=== PATIENT | female | born 1965 | race Caucasian/White ===

== ENCOUNTER → 2018-12-26 | Outpatient (CLI) | payer OTHER ==
[~2018-12-26] MED LIST: ASPI325EC PO; ASPIRIN; CIME400; CIPR500 PO; CYCL10 PO; IBUP200; Norco 5-325 Ta1 EACH PO; OXYACE7.5T PO; RANI150 PO; Robaxin-750750 MG PO; Stool Softener240 MG PO; TUMS300 MG PO; TYLENOL; VALD20 PO
[2018-12-26 08:45] LABS: BASOPHILS ABSOLUTE AUTO 0.02 K/mm3 (0.00-0.23); BASOPHILS PERCENT AUTO 0 % (0-2); EOSINOPHILS ABSOLUTE AUTO 0.16 K/mm3 (0.00-0.68); EOSINOPHILS PERCENT AUTO 3 % (0-6); Hematocrit 38.7 % (33.0-51.0); Hemoglobin 12.2 g/dL (11.5-16.0); IMMATURE GRAN ABSOLUTE AUTO 0.01 K/mm3 (0.00-0.10); IMMATURE GRAN PERCENT AUTO 0 % (0-1); LYMPHOCYTES ABSOLUTE AUTO 1.94 K/mm3 (0.84-5.20); LYMPHOCYTES PERCENT AUTO 34 % (21-46); MONOCYTES ABSOLUTE AUTO 0.37 K/mm3 (0.16-1.47); MONOCYTES PERCENT AUTO 6 % (4-13); Mean Corpuscular HGB 30.2 pg (26.0-34.0); Mean Corpuscular HGB Conc 31.5 g/dL (31.5-36.5); Mean Corpuscular Volume 96 fL (80-100); Mean Platelet Volume 10.7 fL (9.1-12.4); NEUTROPHILS ABSOLUTE AUTO 3.28 K/mm3 (1.96-9.15); NEUTROPHILS PERCENT AUTO 57 % (41-73); Platelet Count 187 K/mm3 (150-400); RDW Coefficient Variation 13.5 % (11.7-14.2); RDW Standard Deviation 47.8 fL (35.1-46.3); Red Blood Cell Count 4.04 M/mm3 (3.80-5.20); White Blood Cell Count 5.78 K/mm3 (4.00-11.30)
[2018-12-26 09:03] LABS: Albumin, Blood 3.5 g/dL (3.4-5.0); Albumin/Globulin Ratio 0.8 (0.8-1.8); Bilirubin, Total 0.4 mg/dL (0.1-1.0); Bun/Creatinine Ratio 12.9 (12.0-20.0); Calcium, Blood 8.8 mg/dL (8.5-10.1); Creatinine, Blood 1.01 mg/dL (0.40-1.00); Globulin, Blood 4.2 g/dL (2.2-4.0); Thyroid Stimulating Hormone 3.855 uIU/mL (0.360-4.800); Total Protein, Blood 7.7 g/dL (6.4-8.2)
== END | disposition home or self-care (01) ==
LOC: LAB SHORT 08:36 → LAB EV 08:36
PROVIDERS: Family Medicine
DX: I10 Essential (primary) hypertension (principal)
CPT/HCPCS: 80053; 83880; 84443; 85025

== ENCOUNTER 2023-06-23 17:34 | Inpatient (IN) | payer OTHER ==
[~2023-06-23] VITALS: Ht 180.3 cm; Wt 422.0 kg
[2023-06-23] MEDS ORDERED: FentaNYL Citrate 50 MCG/ML 2 ML Injection IV ONE (18:25)
[2023-06-23] MEDS ORDERED: Ketorolac Tromethamine 30mg Vial IV ONE (18:25)
[2023-06-23] MEDS ORDERED: Nystatin 100,000 Unit/GM CREAM 15 GM TOP ONE (18:25)
[2023-06-23 19:18] LABS: BASOPHILS ABSOLUTE AUTO 0.01 K/mm3 (0.00-0.23); BASOPHILS PERCENT AUTO 0 % (0-2); EOSINOPHILS ABSOLUTE AUTO 0.02 K/mm3 (0.00-0.68); EOSINOPHILS PERCENT AUTO 0 % (0-6); Hemoglobin 10.4 g/dL (11.5-16.0); IMMATURE GRAN ABSOLUTE AUTO 0.03 K/mm3 (0.00-0.10); IMMATURE GRAN PERCENT AUTO 0 % (0-1); LYMPHOCYTES ABSOLUTE AUTO 0.83 K/mm3 (0.84-5.20); LYMPHOCYTES PERCENT AUTO 10 % (21-46); MONOCYTES ABSOLUTE AUTO 0.86 K/mm3 (0.16-1.47); MONOCYTES PERCENT AUTO 10 % (4-13); Mean Corpuscular HGB 29.8 pg (26.0-34.0); Mean Corpuscular HGB Conc 32.5 g/dL (31.5-36.5); Mean Corpuscular Volume 92 fL (80-100); Mean Platelet Volume 11.7 fL (9.1-12.4); NEUTROPHILS ABSOLUTE AUTO 6.66 K/mm3 (1.96-9.15); NEUTROPHILS PERCENT AUTO 79 % (41-73); Platelet Count 257 K/mm3 (150-400); RDW Coefficient Variation 13.7 % (11.7-14.2); RDW Standard Deviation 46.3 fL (35.1-46.3); Red Blood Cell Count 3.49 M/mm3 (3.80-5.20); White Blood Cell Count 8.41 K/mm3 (4.00-11.30)
[2023-06-23] MEDS ORDERED: Cyclobenzaprine HCl 10 MG Tab PO ONE (19:25)
[2023-06-23 20:00] LABS: Magnesium, Blood 2.5 mg/dL (1.6-2.4)
[2023-06-23 20:07] LABS: Albumin, Blood 2.5 g/dL (3.4-5.0); Albumin/Globulin Ratio 0.5 (0.8-1.8); Bilirubin, Total 0.4 mg/dL (0.1-1.0); Bun/Creatinine Ratio 19.5 (12.0-20.0); Calcium, Blood 8.2 mg/dL (8.5-10.1); Creatinine, Blood 5.29 mg/dL (0.40-1.00); Globulin, Blood 4.7 g/dL (2.2-4.0); Potassium, Blood 5.1 mmol/L (3.5-5.5); Total Protein, Blood 7.2 g/dL (6.4-8.2)
[2023-06-23] MEDS ORDERED: NS 1,000 ML IV SCH ×3 (20:20→23:00)
[2023-06-23] MEDS ORDERED: Clindamycin 600mg in D5W 50 ML IV ONE (20:50)
[2023-06-23 21:31] LABS: Source, Urine Foley catheter
[2023-06-23 21:41] LABS: Appearance, Urine Turbid (Clear); Bilirubin, Urine Neg (Neg); Blood, Urine 5+ (Neg); Color, Urine Yellow (P-Yellow); Glucose Qualitative, Urine Neg (Neg); Ketones, Urine Neg (Neg); Leukocyte Esterase, Urine 3+ (Neg); Nitrite, Urine Neg (Neg); Protein, Urine 3+ (Neg); Specific Gravity, Urine 1.015 (1.003-1.022); Urobilinogen, Urine NORM (Normal)
[2023-06-23 21:57] LABS: Bacteria Many /hpf; Mucus Light (0-Heavy); Red Blood Cells, Urine 25-50 /hpf (0-2); Squamous Epithelial Cells Mod /hpf (Few); White Blood Cells, Urine TNTC /hpf (0-5)
[2023-06-23 22:00] LABS: Amorphous Mod (0-Heavy)
[2023-06-23] MEDS ORDERED: Acetaminophen 325 MG TABLET PO PRN (22:05)
[2023-06-23] MEDS ORDERED: FLU VACC QS2023-24(6MOS UP)/PF 60 MCG/0.5 ML SYRINGE IM ONE (22:05)
[2023-06-23] MEDS ORDERED: Nystatin 100,000 Unit/GM CREAM 15 GM TOP SCH (23:00)
--- NOTE | 2023-06-23 23:30 | NUR ---
NEW ADMIT FROM THE ER. PATIENT ARRIVED TO ROOM 354 VIA GURNEY AND ONE PERSON ASSIST. PATIENT ADMITTED INTO A LIFT ROOM. PATIENT ARRIVED W/LIFT SHEET IN PLACE. 4 PERSON TRANSFER WITH LIFT TO BARIATRIC BED. PATIENT ASLEEP UPON ARRIVAL. PATIENT MOVED TO BARIATRIC BED AND REPOSITIONED W/ THE ASSISTANCE OF DESIGN DRAFTER CHIEF.
[2023-06-23 23:57] VITALS: BP 103/53
[2023-06-24] MEDS ORDERED: Aspir 8181 MG PO (00:26)
[2023-06-24] MEDS ORDERED: Ranitidine HCl150 M1 PO (00:28)
[2023-06-24] MEDS ORDERED: LISI5 PO (00:30)
[2023-06-24] MEDS ORDERED: TIZA4 (00:32)
[2023-06-24] MEDS ORDERED: TIZA4 PO (00:33)
[2023-06-24] MEDS ORDERED: VITAMIN D33000 UNIT PO (00:34)
--- NOTE | 2023-06-24 00:50 | NUR ---
HOSPITALIST CONTACTED. HOSPITALIST DR. NAVARRO CONTACTED FOR PATIENTS C/O PAIN/MUSCLE SPASMS THAT IS UNRESOLVED BY TYLENOL PER PATIENT. ORDERED FOR HYDROCODONE PER HIS ORDERS-SEE ORDERS/EMAR.
[2023-06-24] MEDS ORDERED: HYDROcodone 5-APAP 325 TAB PO PRN (01:00)
[2023-06-24 05:30] LABS: BASOPHILS ABSOLUTE AUTO 0.02 K/mm3 (0.00-0.23); BASOPHILS PERCENT AUTO 0 % (0-2); EOSINOPHILS ABSOLUTE AUTO 0.05 K/mm3 (0.00-0.68); EOSINOPHILS PERCENT AUTO 1 % (0-6); Hematocrit 28.8 % (33.0-51.0); Hemoglobin 9.2 g/dL (11.5-16.0); IMMATURE GRAN ABSOLUTE AUTO 0.03 K/mm3 (0.00-0.10); IMMATURE GRAN PERCENT AUTO 1 % (0-1); LYMPHOCYTES ABSOLUTE AUTO 0.98 K/mm3 (0.84-5.20); LYMPHOCYTES PERCENT AUTO 17 % (21-46); MONOCYTES ABSOLUTE AUTO 0.65 K/mm3 (0.16-1.47); MONOCYTES PERCENT AUTO 11 % (4-13); Mean Corpuscular HGB 29.6 pg (26.0-34.0); Mean Corpuscular HGB Conc 31.9 g/dL (31.5-36.5); Mean Corpuscular Volume 93 fL (80-100); Mean Platelet Volume 11.3 fL (9.1-12.4); NEUTROPHILS ABSOLUTE AUTO 3.98 K/mm3 (1.96-9.15); NEUTROPHILS PERCENT AUTO 70 % (41-73); Platelet Count 199 K/mm3 (150-400); RDW Coefficient Variation 13.7 % (11.7-14.2); RDW Standard Deviation 46.7 fL (35.1-46.3); Red Blood Cell Count 3.11 M/mm3 (3.80-5.20); White Blood Cell Count 5.71 K/mm3 (4.00-11.30)
--- NOTE | 2023-06-24 06:15 | NUR ---
SHIFT SUMMARY. PATIENT IS A 57 YEAR OLD FEMALE IN WITH RHABDO AND A UTI. PATIENT IS AOX3-4. PATIENT CALLING OUT AT TIMES T/O NIGHT-PATIENTS NEEDS ADDRESSED. PATIENT IS PLEASANT AND COOPERATIVE WITH CARE. PATIENT HAS HOME MEDS THAT ARE LOCKED IN PATIENT [employer]. PATIENT HAS RED, MOIST, YEASTY RASH TO GROIN AND FOLDS-PICTURES DOCUMENTED IN CHART. PATIENT HAS SLEPT OFF AND ON T/O NIGHT. PATIENT IS BEDREST AND LIFT-PATIENT IS IN BARIATRIC BED WITH LIFT SHIFT. BED IS LOCKED IN THE LOWEST POSITION W/CALL LIGHT IN REACH.
[2023-06-24 06:17] LABS: Albumin/Globulin Ratio 0.5 (0.8-1.8); Bilirubin, Total 0.4 mg/dL (0.1-1.0); Bun/Creatinine Ratio 22.1 (12.0-20.0); Calcium, Blood 7.7 mg/dL (8.5-10.1); Creatinine, Blood 4.66 mg/dL (0.40-1.00); Globulin, Blood 4.2 g/dL (2.2-4.0); Potassium, Blood 4.6 mmol/L (3.5-5.5); Total Protein, Blood 6.2 g/dL (6.4-8.2)
[2023-06-24 07:59] VITALS: BP 105/50
[2023-06-24] MEDS ORDERED: Heparin Sodium,Porcine 5,000 UNIT/0.5 ML SDV SC SCH (09:00)
[2023-06-24] MEDS ORDERED: TiZANidine HCl 4 MG Tab PO PRN (11:25)
[2023-06-24] MEDS ORDERED: NS 1,000 ML IV SCH (11:30)
[2023-06-24] MEDS ORDERED: CefTRIAXone Sodium 1,000 MG in NS 50 ML IV SCH (11:42)
[2023-06-24] MEDS ORDERED: Vancomycin HCL 2,500 MG in NS 250 ML IV ONE (11:45)
[2023-06-24] MEDS ORDERED: FentaNYL Citrate 50 MCG/ML 2 ML Injection IV PRN (14:05)
[2023-06-24] MEDS ORDERED: Miconazole Nitrate 2% 85 GM PWD TOP PRN (16:00)
[2023-06-24 17:00] VITALS: BP 116/69
--- NOTE | 2023-06-24 17:26 | NUR ---
DAYSHIFT SUMMARY Patient alert & oriented x4, pleasant and cooperative with cares. Worked with OT this morning, used alice lift to transfer patient to recliner. Patient unable to ambulate. PT assessed patient this afternoon, and helped patient with bed exercises. PT instructed RN to have patient OOB in recliner for at least one meal per day. Patient c/o pain when in recliner, she compained sitting in high fowlers pinches the skin on her pannus. Wound care provided, skin folds red and exoriated, very painful. Cleaned areas and applied powder/pads to absorb moisture. Patient very painful, hydrocodone and IV fentynal givne for pain. Vitals stable. Will continue plan of care.
[2023-06-24 19:47] VITALS: BP 114/59
[2023-06-24] MEDS ORDERED: Lactobacil 2-S.Thermo-Bifido 1 1 Cap PO SCH (21:00)
[2023-06-25 02:59] VITALS: BP 103/57
[2023-06-25 04:41] LABS: BASOPHILS ABSOLUTE AUTO 0.01 K/mm3 (0.00-0.23); BASOPHILS PERCENT AUTO 0 % (0-2); EOSINOPHILS ABSOLUTE AUTO 0.13 K/mm3 (0.00-0.68); EOSINOPHILS PERCENT AUTO 2 % (0-6); Hematocrit 29.9 % (33.0-51.0); Hemoglobin 9.3 g/dL (11.5-16.0); IMMATURE GRAN ABSOLUTE AUTO 0.07 K/mm3 (0.00-0.10); IMMATURE GRAN PERCENT AUTO 1 % (0-1); LYMPHOCYTES ABSOLUTE AUTO 1.19 K/mm3 (0.84-5.20); LYMPHOCYTES PERCENT AUTO 19 % (21-46); MONOCYTES ABSOLUTE AUTO 0.68 K/mm3 (0.16-1.47); MONOCYTES PERCENT AUTO 11 % (4-13); Mean Corpuscular HGB 29.3 pg (26.0-34.0); Mean Corpuscular HGB Conc 31.1 g/dL (31.5-36.5); Mean Corpuscular Volume 94 fL (80-100); Mean Platelet Volume 11.4 fL (9.1-12.4); NEUTROPHILS ABSOLUTE AUTO 4.22 K/mm3 (1.96-9.15); NEUTROPHILS PERCENT AUTO 67 % (41-73); Platelet Count 210 K/mm3 (150-400); RDW Coefficient Variation 13.8 % (11.7-14.2); RDW Standard Deviation 48.2 fL (35.1-46.3); Red Blood Cell Count 3.17 M/mm3 (3.80-5.20)
[2023-06-25 05:41] LABS: Magnesium, Blood 2.5 mg/dL (1.6-2.4)
[2023-06-25 05:47] LABS: Alanine Aminotransfer (ALT/SGP 89 U/L (12-78); Albumin, Blood 1.9 g/dL (3.4-5.0); Albumin/Globulin Ratio 0.4 (0.8-1.8); Alk Phos 104 U/L (50-136); Anion Gap 7 mmol/L (6-16); Aspartate Aminotrans (AST/SGOT 130 U/L (12-37); Bilirubin, Total 0.3 mg/dL (0.1-1.0); Blood Urea Nitrogen 95 mg/dL (8-24); Bun/Creatinine Ratio 30.2 (12.0-20.0); CO2, Blood 23 mmol/L (21-32); Calcium, Blood 8.1 mg/dL (8.5-10.1); Chloride, Blood 109 mmol/L (98-108); Creatinine, Blood 3.15 mg/dL (0.40-1.00); Globulin, Blood 4.4 g/dL (2.2-4.0); Glomerular Filtration Rate 17 (60-); Glucose, Blood 104 mg/dL (70-99); Potassium, Blood 4.5 mmol/L (3.5-5.5); Sodium, Blood 139 mmol/L (136-145); Total Protein, Blood 6.3 g/dL (6.4-8.2); Vancomycin, Random 14.7 ug/mL
--- NOTE | 2023-06-25 07:29 | NUR ---
PATIENT IS ALERT AND ORIENTED WITH ONGOING IV FLUIDS ON RIGHT UPPER EXTREMITY INFUSING WELL. ON ROOM AIR. COMPLAINT OF PAIN AND MEDICATED ACCORDINGLY. WITH BELLO CATHETER DRAINING WELL. NEEDS ATTENDED. CALL LIGHT WITHIN PATIENT'S REACH. WILL CONTINUE TO MONITOR
[2023-06-25 07:57] VITALS: BP 117/64
[2023-06-25] MEDS ORDERED: [UNRECOGNIZED DRUG - OTHER] SC SCH (12:00)
[2023-06-25] MEDS ORDERED: DARBEPOETIN ALFA SC SCH (12:00)
[2023-06-25] MEDS ORDERED: FentaNYL Citrate 50 MCG/ML 2 ML Injection IV PRN (12:10)
--- NOTE | 2023-06-25 12:50 | NUR ---
pt has red skin and skin breakdown under LT side breast and under stomach fold,The RN and I cleaned with wound cleanser and patted dry before applying nystatin powder and placed pillow case under breast and white chucks under stomach. Pt has enlarged vaginal area with skin breakdown under and between thighs Rn and cna2 cleaned area with wound cleanser, pat dry and applied nystatin powder. pillow cases were placed between vaginal skin and thighs to prevent moisture build up
[2023-06-25 16:34] VITALS: BP 115/64
--- NOTE | 2023-06-25 17:02 | NUR ---
DAYSHIFT SUMMARY Patient alert & oriented x4. Patient continues to have muscle spasms and pain. Repostioning to reduce discomfort. Tizanadine given PRN for muscle spasms. IV Fentynal 12.5mg given for pain. During wound care patient in severe pain, crying and yelling. Skin is red, exoriated in skin folds, small open wounds noted t/o. Yeast, moisture noted in skin folds and groin. RN notified MD, and reported patient in sever epain during wound care. Orders to increase IV Fentynal to 25mcg. IV ABX administred. Collected UA for urine sodium. Vitals stable, saturations stable on RA, afebrile. Will continue plan of care.
[2023-06-25 17:06] LABS: Eosinophils-Raw #,Urine 1
[2023-06-25 19:22] VITALS: BP 155/62
[2023-06-26 03:33] VITALS: BP 140/61
[2023-06-26 06:08] LABS: Hematocrit 32.3 % (33.0-51.0); Hemoglobin 9.9 g/dL (11.5-16.0)
[2023-06-26 06:35] LABS: Albumin, Blood 1.9 g/dL (3.4-5.0); Anion Gap 7 mmol/L (6-16); Blood Urea Nitrogen 74 mg/dL (8-24); Bun/Creatinine Ratio 41.6 (12.0-20.0); CO2, Blood 23 mmol/L (21-32); Calcium, Blood 8.7 mg/dL (8.5-10.1); Chloride, Blood 109 mmol/L (98-108); Creatinine, Blood 1.78 mg/dL (0.40-1.00); Glomerular Filtration Rate 33 (60-); Glucose, Blood 111 mg/dL (70-99); Magnesium, Blood 2.3 mg/dL (1.6-2.4); Phosphorus, Blood 4.2 mg/dL (2.5-4.9); Potassium, Blood 4.5 mmol/L (3.5-5.5); Sodium, Blood 139 mmol/L (136-145); Vancomycin, Random 13.5 ug/mL
--- NOTE | 2023-06-26 06:56 | NUR ---
PATIENT IS ALERT AND ORIENTED. COMPLAINTS OF PAIN, MEDICATED ACCORDINGLY. WITH POWERGLIDE ON LEFT UPPER ARM WITH ONGOING IV FLUIDS INFUSING WELL. WITH BELLO CATHETER, DRAINING WELL. NEEDS ATTENDED. CALL LIGHT WITHIN PATIENT'S REACH. WILL CONTINUE TO MONITOR
[2023-06-26 07:42] VITALS: BP 125/70
[2023-06-26] MEDS ORDERED: TiZANidine HCl 4 MG Tab PO PRN (08:55)
[2023-06-26] MEDS ORDERED: Fluconazole 100 MG Tab PO SCH (09:00)
[2023-06-26] MEDS ORDERED: Arginine/Glutamine/Calcium Hmb 1 Packet PO SCH (09:00)
[2023-06-26] MEDS ORDERED: Vancomycin HCL 2,500 MG in NS 250 ML IV SCH (09:00)
[2023-06-26] MEDS ORDERED: NS 1,000 ML IV SCH (09:15)
[2023-06-26 15:45] VITALS: BP 130/58
[2023-06-26 19:24] VITALS: BP 158/67
--- NOTE | 2023-06-26 19:37 | NUR ---
SHIFT SUMMARY A&O X 4, VSS. PLEASANT & COOPERATIVE WITH ALL CARE. IS [place]. MEDICATED PER EMAR FOR C/O PAIN. PLACED CALL TO DR. BAINS IN THE MORNING TO REPORT PT'S C/O OF L SIDED SCIATIC NERVE PAIN, RECEIVED ORDERS. PT TURNED TO R SIDE W/ ASSIST X 4 TO HELP RELIEVE PAIN. DURING WOUND TREATMENT OF ALL FOLDS A POPPED BLISTER WAS DISCOVERED ON PT'S R BUTTOCK CHEEK, PICS TAKEN AND ARE ON CHART. PT IS IN A WEST BED. PG IN L UPPER ARM INTACT & PATENT WITH FLUIDS INFUSING. APPETITE IS GOOD. PLAN IS LIKELY FOR PLACEMENT UPON DC.
[2023-06-27 02:48] VITALS: BP 116/60
--- NOTE | 2023-06-27 07:03 | NUR ---
SUMMARY: PT A/OX3 AND ANSWERS Q'S APPROPRIATELY BUT HAS DELAYED RESPONSES AND SLOW SPEECH. SHE'S W/C BOUND AT BASELINE AND TYPICALLY ABLE TO PIVOT T/F W/ASSIST BUT PHYS TX CONSULTING FOR INCREASED WEAKNESS. SHE'S FIGITY AND REPOSITIONS HERSELF OFTEN IN BED BUT ASSIST PROVIDED PRN. ACE IS PATENT DRAINING AND IS CONSULTING FOR ONGOING HYPONATREMIA. X1 IV LASIX AND SCHEDULED NACL TABLET RECEIVED PER EMAR, AM LABS PENDING. NO ACUTE CHANGES, VSS/AFEBRILE. WCTM AND REPORT TO DAY RN.
--- NOTE | 2023-06-27 07:05 | NUR ---
SUMMARY: PT A/OX4, CALLS APPROPRIATELY TO SPECIFY NEEDS AND IS PLEASANT AND COOPERATIVE W/CARE. SHE'S ON BEDREST AT PRESENT ON A WEST BED AND REQUIRES LIFT OOB W/REPOSITIONING ASSIST FOR SBD PREVENTION. SHE HAS YEAST TO ALL SKIN FOLDS W/EXORIATION, REDNESS AND WEAPING OPEN SORES SCATTERED T/O. AREAS CLEANSED W/NYSTATIN CREAM APPLIED THEN PILLOW CASES DRAPED FOR MOISTURE WHICKING. BELLO IS PATENT/DRAINING FOR WOUND PREVENTION AND DECREASED MOBILITY. SHE REPORTS SCIATICA PAIN W/SPASMS AND PREFERS TO BE R.SIDE LYING W/FLEXERIL AND NORCO RECEIVED FOR TOLERABLE RELIEF. IV ABX AND IVF INFUSING FOR RHABDO.
[2023-06-27 07:18] LABS: Hemoglobin 9.8 g/dL (11.5-16.0)
[2023-06-27 07:47] LABS: Albumin, Blood 1.8 g/dL (3.4-5.0); Anion Gap 6 mmol/L (6-16); Blood Urea Nitrogen 59 mg/dL (8-24); Bun/Creatinine Ratio 43.4 (12.0-20.0); CO2, Blood 25 mmol/L (21-32); Calcium, Blood 8.7 mg/dL (8.5-10.1); Chloride, Blood 107 mmol/L (98-108); Creatinine, Blood 1.36 mg/dL (0.40-1.00); Glomerular Filtration Rate 45 (60-); Glucose, Blood 101 mg/dL (70-99); Magnesium, Blood 2.1 mg/dL (1.6-2.4); Phosphorus, Blood 3.7 mg/dL (2.5-4.9); Potassium, Blood 4.6 mmol/L (3.5-5.5); Sodium, Blood 138 mmol/L (136-145)
[2023-06-27 08:02] VITALS: BP 141/61
[2023-06-27 16:17] VITALS: BP 131/51
[2023-06-27] MEDS ORDERED: Bisacodyl 5 MG TabEC PO PRN (16:25)
[2023-06-27] MEDS ORDERED: Sennosides 8.6 MG Tab PO SCH (16:25)
[2023-06-27] MEDS ORDERED: Mineral Oil 133 ML Enema PR PRN (16:25)
--- NOTE | 2023-06-27 17:03 | NUR ---
SUMMARY- PT A/O X4, [place], COOPERATIVE WITH CARE. OBESE, HAVING SEVERE PAIN IN LEGS AND BACK, SPASMS, PAIN IN HIPS, FEELS LIKE L HIP IS GOING TO POP OUT OF PLACE IN CERTAIN POSITIONS. REALY ONLY TOLERATES LAYING TILTED SLIGHTLY TO R SIDE. PREMEDICATED AT 1200, AND 4 STAFF MEMBERS WORKED TO GET HER INTO A CHAIR WITH A BEDREST. FENTANYL JUST PRIOR TO TX TO CHAIR. WAS UP IN CHAIR FOR LUNCH, TOOK BITES, AND HAD AN ENSURE. WAS ONLY ABLE TO TOLERATE BEING IN CHAIR FOR 20 MIN THAN BEGAN CRYING IN PAIN FROM GLUT WOUNDS AND HAD TO LIFT PT BACK TO BED. PREMEDICATED NOW, PLAN FOR WOUND CARE 0, WILL WRITE NOTE CONCERNING SKIN ISSUES. IVF NS AT 50ML/HR CONTINUOUS. TAKING IN WATER. STARTED ON BOWEL CARE MEDS, NO BM SINCE 06/20. PAIN PARTIALLY CONTROLLED TODAY WITH NORCO AND XANAFLEX AND PRN FENT. WILL REPORT TO NOC AJ
--- NOTE | 2023-06-27 19:52 | NUR ---
WOUND CARE 06/27 1529- PREMEDICATED WITH NORCO AND XANAFLEX. CLEANSED ALL SKIN FOLDS. BREAST AREA DRIED SCABS, RED PEALING. CLEANSED , DRIED, DUSTED WITH MICONAZOLE POWDER. PANUS, CLEANSED DRIED, MULT OPEN ULCERATIONS, EXCORIATION, APPLIED CALAZYME AND MICOZOLE CREAM. BELLO CARE PERFORMED. BUTTOCK CLEANSED, 2 OPEN AREAS APPLIED MEPILEX, CALAZYME TO GLUT CREASE.
[2023-06-27 20:01] VITALS: BP 121/46
[2023-06-28 02:19] VITALS: BP 157/74
--- NOTE | 2023-06-28 05:08 | NUR ---
Shift Summary Patient is alert and oriented x 4. Resprirations regular and unlabored. Patient is on room air. Overhead lift was used for cleaning and positioning patient during dressing changes. She has redness and excoriation to skin folds. Folds were cleaned and patted dry.Medicated powder and cream applied to folds. Pillow cases put in place between folds to prevent skin on skin contact. Patient requires pain medication about every 4 hours. Xanaflex was also given for complaint of muscle spasms in legs. She has normal saline infusing to power glide in left upper arm at 50 cc/hr. She did not have a bowel movement on this shift.
[2023-06-28 05:35] LABS: Hematocrit 31.6 % (33.0-51.0); Hemoglobin 9.7 g/dL (11.5-16.0)
[2023-06-28 06:01] LABS: Albumin, Blood 1.8 g/dL (3.4-5.0); Anion Gap 6 mmol/L (6-16); Blood Urea Nitrogen 48 mg/dL (8-24); Bun/Creatinine Ratio 42.1 (12.0-20.0); CO2, Blood 26 mmol/L (21-32); Calcium, Blood 8.8 mg/dL (8.5-10.1); Chloride, Blood 108 mmol/L (98-108); Creatinine, Blood 1.14 mg/dL (0.40-1.00); Glomerular Filtration Rate 56 (60-); Glucose, Blood 114 mg/dL (70-99); Magnesium, Blood 1.8 mg/dL (1.6-2.4); Phosphorus, Blood 3.6 mg/dL (2.5-4.9); Potassium, Blood 4.9 mmol/L (3.5-5.5); Sodium, Blood 140 mmol/L (136-145)
[2023-06-28 08:19] VITALS: BP 167/79
[2023-06-28 09:17] LABS: Vancomycin, Trough 20.9 ug/mL (5.0-10.0)
[2023-06-28] MEDS ORDERED: Vancomycin HCL 1,000 MG in NS 100 ML IV SCH (11:00)
[2023-06-28] MEDS ORDERED: Magnesium Hydroxide Conc 10 ML UDC PO PRN (12:20)
[2023-06-28 14:59] VITALS: BP 141/78
--- NOTE | 2023-06-28 20:32 | NUR ---
SUMMARY- PT A/O X4, VERY [place]. USES CALL LIGHT TO MAKE NEEDS KNOWN. KIDNEY FUNCTION BACK TO NORMAL. IVF DC'D. BELLO MED YELLOW. LAXATIVES PRODUCED AN X LG BM, HARD PELLETS AT FIRST, RN DIG ASSIST WITH OIL ENEMA UNTIL BM ABLE TO BE PUSHED OUT BY PT AND SOFT. NO BLEEDING, THOUGH PT STATES HEMORRHOIDS. PT TOLERATES LG AMOUNTS OF FLUIDS AND ENSURES, ONLY BITES OF SOLIDS. STATES SHE IS NOT A BIG EATER. STATES SHE FEELS MUCH BETTER HAVING HAD A BM. PAIN IS IN L HIP AND SCIATIC PAIN. HAS MUSCLE SPASMS IN LEGS WITH MOVEMENTS. PT PREFERS TO LAY ON HER R SIDE WITH PILLOWS, DOES NOT TOLERATED BACK LAYING OR L SIDE. PT UP TO CHAIR WITH PHYSICAL THERAPY TODAY USIND CEILING LIFT. SAT IN CHAIR FOR ALMOST 2 HOURS WITH A LOT OF ENCOURAGEMENT. BACK TO BED AT 1700 SO PT COULD HAVE BM. THAN ALL SKIN SLEANSED, REAPPLIED ZINC OINT AND NYSTATIN CREAM. HARD TIME CONTROLLING PAIN. NORCO 5, 2 TABS APPROX Q4 HELPFUL. FENT 25MG IV FOR BTP. BUT PT STILL FREQ HEARD CRYING OUT IN PAIN, NEEDS FREQ PILLOW READJUSTMENT AND HARD TO CONTROL PAIN. XANAFLEX FOR SPASMS. REOPRTED TO BETHEL LOPEZ RN
[2023-06-28 20:56] VITALS: BP 164/73
--- NOTE | 2023-06-29 04:05 | NUR ---
SHIFT SUMMARY PATIENT HAD NO ACUTE CHANGES. AXOX 4 AND BEDREST/LIFT. BELLO PATENT AND DRAINING TO GRAVITY. POWERGLIDE MISSY ARM POSITIONAL. IV ABX INFUSED. REPORTED BACK PAIN X 2 AND NORCO 2 TABS GIVEN PER EMAR. LOW GRADE TEMP 99.8 AND ROOM TEMP TURNED DOWN. DENIES CHEST PAIN, SOB, AND N/V. CALL LIGHT IN REACH. BED IN LOWEST POSITION. WILL CONTINUE TO MONITOR UNTIL DAY SHIFT NURSE ASSUMES CARE.
[2023-06-29 05:39] VITALS: BP 130/68
[2023-06-29 06:32] LABS: Hematocrit 31.7 % (33.0-51.0); Hemoglobin 9.9 g/dL (11.5-16.0)
[2023-06-29 06:58] LABS: Albumin, Blood 1.8 g/dL (3.4-5.0); Anion Gap 5 mmol/L (6-16); Blood Urea Nitrogen 36 mg/dL (8-24); CO2, Blood 28 mmol/L (21-32); Calcium, Blood 8.9 mg/dL (8.5-10.1); Chloride, Blood 106 mmol/L (98-108); Glomerular Filtration Rate 66 (60-); Glucose, Blood 121 mg/dL (70-99); Magnesium, Blood 1.9 mg/dL (1.6-2.4); Phosphorus, Blood 3.7 mg/dL (2.5-4.9); Potassium, Blood 4.7 mmol/L (3.5-5.5); Sodium, Blood 139 mmol/L (136-145)
[2023-06-29 08:06] VITALS: BP 160/85
[2023-06-29 17:30] VITALS: BP 151/86
--- NOTE | 2023-06-29 18:25 | NUR ---
SHIFT SUMMARY NO ACUTE CHANGES THIS SHIFT. WOUND CARE PERFORMED PER ORDERS AND PAIN MEDICATED PER EMAR. CALL LIGHT WITHIN REACH AND PT ABLE TO MAKE NEEDS KNOWN.
[2023-06-29 19:22] VITALS: BP 108/71
[2023-06-29 23:26] LABS: Vancomycin, Trough 17.8 ug/mL (5.0-10.0)
--- NOTE | 2023-06-30 03:36 | NUR ---
END OF SHIFT SUMMARY PT A&Ox4, VSS, AFEBRILE, PT ON RA. PT CALLS APPROPRIATELY, ABLE TO MAKE NEEDS KNOWN. IV ABX HUNG. POWERGLIDE TO R UPPER ARM, S. LOCKED. PT 2-3P ASSIST WITH TURNS IN BED, LIFT WAS USED TO REPOSITION/BOOST PT UP IN BED. PT PAINFUL AFTER CHANGING THE LEVI PADS. PAIN MANAGED WITH PRN NORCO GIVEN WITH GOOD RESULTS. PRN MUSCLE RELAXER ZANAFLEX ADMINISTERED WHICH WAS EFFECTIVE. CALL LIGHT WITHIN REACH, WCTM.
[2023-06-30 05:05] VITALS: BP 146/74
[2023-06-30 05:25] LABS: Hematocrit 30.6 % (33.0-51.0); Hemoglobin 9.5 g/dL (11.5-16.0)
[2023-06-30 06:08] LABS: Albumin, Blood 1.9 g/dL (3.4-5.0); Anion Gap 5 mmol/L (6-16); Blood Urea Nitrogen 31 mg/dL (8-24); Bun/Creatinine Ratio 32.8 (12.0-20.0); CO2, Blood 28 mmol/L (21-32); Calcium, Blood 8.8 mg/dL (8.5-10.1); Chloride, Blood 104 mmol/L (98-108); Creatinine, Blood 0.95 mg/dL (0.40-1.00); Glomerular Filtration Rate 70 (60-); Glucose, Blood 120 mg/dL (70-99); Magnesium, Blood 1.8 mg/dL (1.6-2.4); Phosphorus, Blood 3.9 mg/dL (2.5-4.9); Potassium, Blood 4.6 mmol/L (3.5-5.5); Sodium, Blood 137 mmol/L (136-145)
[2023-06-30 07:23] VITALS: BP 129/63
[2023-06-30] MEDS ORDERED: Lisinopril 5 MG Tab PO SCH (09:00)
[2023-06-30] MEDS ORDERED: Cholecalciferol 1000 Unit Tablet (=25MCG) PO SCH (09:00)
[2023-06-30 17:09] VITALS: BP 125/74
--- NOTE | 2023-06-30 17:40 | NUR ---
SHIFT SUMMARY PT WORKED W/ PHYSICAL AND OCCUPATIONAL THERAPY THIS SHIFT, SEE NOTES. WOUND CARE COMPLETED PER ORDERS. NO OTHER ACUTE CHANGES. CALL LIGHT WITHIN REACH AND PT ABLE TO MAKE NEEDS KNOWN.
[2023-06-30 20:13] VITALS: BP 121/67
[2023-07-01 03:25] VITALS: BP 136/74
--- NOTE | 2023-07-01 04:41 | NUR ---
END OF SHIFT SUMMARY PT SLEPT WELL OVERNIGHT. PT A&O x4, VSS, AFEBRILE. PT ON RA, RESP RATE EVEN AND UNLABORED. WOUND CARE COMPLETED PER ORDERS. PT MEDICATED PRIOR TO WOUND CARE. PAIN MANAGED WITH PRN NORCO AND MUSCLE RELAXER, ZANAFLEX WHICH WAS EFFECTIVE. PT REPOSITIONED FOR COMFORT AND TO PREVENT FURTHER SKIN BREAKDOWN TO BUTTOCKS/COCCYX. REDNESS/EXCORIATED DELICATE SKIN TO BUTTOCKS, 3 MEPILEX DRESSINGS PLACED TO BUTTOCKS FOR PROTECTION. PT TOLERATED TURNING IN BED MUCH BETTER LAST NIGHT VERSUS TUESDAY MORNING. PT UP OOB YESTERDAY WORKING WITH THERAPY. PT PLEASANT AND COOPERATIVE WITH CARE PROVIDED. CALL LIGHT WITHIN REACH, WCTM.
[2023-07-01 07:25] VITALS: BP 112/65
[2023-07-01 08:11] LABS: Hematocrit 32.1 % (33.0-51.0)
[2023-07-01 08:29] LABS: Albumin, Blood 1.9 g/dL (3.4-5.0); Anion Gap 5 mmol/L (6-16); Blood Urea Nitrogen 27 mg/dL (8-24); Bun/Creatinine Ratio 30.1 (12.0-20.0); CO2, Blood 27 mmol/L (21-32); Calcium, Blood 8.5 mg/dL (8.5-10.1); Chloride, Blood 104 mmol/L (98-108); Glomerular Filtration Rate 75 (60-); Glucose, Blood 117 mg/dL (70-99); Magnesium, Blood 1.8 mg/dL (1.6-2.4); Phosphorus, Blood 4.4 mg/dL (2.5-4.9); Potassium, Blood 4.6 mmol/L (3.5-5.5); Sodium, Blood 136 mmol/L (136-145)
--- NOTE | 2023-07-01 08:30 | NUR ---
pt laying in bed awake a/ox4, watching tv, having loose stools this am, lungs are clear in upper [place], dim in bases, resp even and unlabored, no cough noted, hrr, power glide to vinnie site is clear and patent, does not draw, btx4 dim, saavedra cath in place for retention, draining clear china urine, skin has rash, open areas under breasts and panus, ointment in place, with pillow cases, can help to turn herself a bit, but is at least two person assist. call light in reach.
[2023-07-01] MEDS ORDERED: NS 250 ML IV PRN (08:50)
[2023-07-01 11:01] LABS: Vancomycin, Trough 17.4 ug/mL (5.0-10.0)
--- NOTE | 2023-07-01 13:17 | NUR ---
pt resting in bed, has had several bms that are loose, no further changes, report given to Barbara ROCHA. call light in reach.
[2023-07-01 16:05] VITALS: BP 102/76
--- NOTE | 2023-07-01 16:15 | NUR ---
MET WITH PATIENT TO DISCUSS POLST. ASSESSED PATIENT FOR PAIN. SHE WAS UP TO THE CHAIR AND UNCOMFORTABLE. DISCUSSED WITH BEDSIDE RN AND PATIENT WAS TREATED PER MAR. POLST FORM FILLED OUT AND LEFT IN THE ROOM FOR DR TO SIGN.
--- NOTE | 2023-07-01 17:49 | NUR ---
SUMMARY- AAOX4. LIFT PT. PT PLACED IN RECLINER AFTER LUNCH FOR 2 HOURS. PT'S PAIN IN BACK/HIPS CONTROLLED MODERATELY WITH EMAR PAIN MEDS AND MUSCLE RELAXER.
[2023-07-01 19:43] VITALS: BP 121/76
[2023-07-02 03:39] VITALS: BP 119/59
--- NOTE | 2023-07-02 04:12 | NUR ---
SHIFT SUMMARY PT A&O X4, CALM AND COOPERATIVE WITH CARE. PT NOT OOB THIS SHIFT, LIFT PATIENT. BELLO IN PLACE PATENT AND DRAINING, CATH CARE COMPLETED. PT HAS OPEN SORES TO FOLDS. SEE WOUND CARE ORDERS. CLEANED AND DRIED, PLACED CREAM, AND PILLOW CASES IN FOLDS. PT COMPLAINTS OF HIP PAIN AND BACK SPASMS. MEDICATED PER EMAR AND PT STATES PAIN IS NOW "TOLERABLE". BED KEPT IN LOWEST POSITION WITH CALL LIGHT WITHIN REACH. WILL CONTINUE TO MONITOR UNTIL SHIFT END.
[2023-07-02 05:28] LABS: BASOPHILS ABSOLUTE AUTO 0.03 K/mm3 (0.00-0.23); BASOPHILS PERCENT AUTO 0 % (0-2); EOSINOPHILS ABSOLUTE AUTO 0.17 K/mm3 (0.00-0.68); EOSINOPHILS PERCENT AUTO 2 % (0-6); Hematocrit 32.8 % (33.0-51.0); Hemoglobin 10.4 g/dL (11.5-16.0); IMMATURE GRAN ABSOLUTE AUTO 0.07 K/mm3 (0.00-0.10); IMMATURE GRAN PERCENT AUTO 1 % (0-1); LYMPHOCYTES ABSOLUTE AUTO 1.68 K/mm3 (0.84-5.20); LYMPHOCYTES PERCENT AUTO 21 % (21-46); MONOCYTES ABSOLUTE AUTO 0.74 K/mm3 (0.16-1.47); MONOCYTES PERCENT AUTO 9 % (4-13); Mean Corpuscular HGB 29.6 pg (26.0-34.0); Mean Corpuscular HGB Conc 31.7 g/dL (31.5-36.5); Mean Corpuscular Volume 93 fL (80-100); Mean Platelet Volume 10.7 fL (9.1-12.4); NEUTROPHILS ABSOLUTE AUTO 5.15 K/mm3 (1.96-9.15); NEUTROPHILS PERCENT AUTO 66 % (41-73); Platelet Count 238 K/mm3 (150-400); RDW Coefficient Variation 13.6 % (11.7-14.2); RDW Standard Deviation 45.7 fL (35.1-46.3); Red Blood Cell Count 3.51 M/mm3 (3.80-5.20); White Blood Cell Count 7.84 K/mm3 (4.00-11.30)
[2023-07-02 07:17] VITALS: BP 109/62
--- NOTE | 2023-07-02 18:05 | NUR ---
SHIFT SUMMARY: PT IS A 57 YEAR OLD FEMALE HERE AFTER DEVELOPING GENERALIZED WEAKNESS. SHE WAS DX WITH A UTI AND RHABDOMYOLYSIS. SHE IS A LIFT PATIENT, MORBIDLY OBESE, AND HAS SEVERAL OPEN AREAS IN HER FOLDS. WOUND CARE PROVIDED TODAY. ATTEMPT TO GET PATIENT TO THE BEDSIDE RECLINER TODAY WITH PT, BUT PT STATED THAT LAST TIME PATIENT WAS IN THE RECLINER IS WAS RECLINED TOO FAR BACK AND THE BACK OF THE CHAIR WOULD NOT STAY UP. DECIDED TO KEEP THE PATIENT IN BED AND HAVE HER BE PLACED IN A SITTING POSITION IN BED. PLAN IS TO HAVE HER GO TO AN OUT OF TOWN FACILITY TO ACCOMMODATE FOR HER BARIATRIC BED AND NEEDS; ALONG WITH AN MRI. SHE IS PLEASANT AND COOPERATIVE WITH CARE, CALL LIGHT WITHIN REACH, NO SIGNS OR SYMPTOMS OF DISTRESS. PLAN OF CARE ONGOING.
[2023-07-02 20:34] VITALS: BP 112/67
[2023-07-03 04:11] VITALS: BP 113/63
--- NOTE | 2023-07-03 04:25 | NUR ---
SHIFT SUMMARY PT A&O X4, COOPERATIVE WITH CARE. PT COMPLAINTS OF LEFT HIP PAIN, REPOSITIONED PRN WITH PILLOWS AND MEDICATED PER EMAR. PT NOT OOB THIS SHIFT. LIFT USED FOR REPOSITIONING. PT HAS OPEN WOUNDS TO PANNUS AND FOLDS. CLEANSED, DRIED, APPLIED CREAMS, AND PLACED DISPOSABLE CHUX IN FOLDS TO PREVENT MOISTURE. BELLO IN PLACE, PATENT, AND DRAINING. NO ACUTE CHANGES THIS SHIFT. CALL LIGHT WITHIN REACH. PT CALLS APPROPRIATELY FOR NEEDS. WILL CONTINUE TO MONITOR.
--- NOTE | 2023-07-03 04:31 | NUR ---
SHIFT SUMMARY PT A&O X4. CONTACT PRECAUTIONS DUE TO HISTORY OF MRSA. PT CONT/INT OF URINE. SBA TO BATHROOM. PT UPSET UPON MY ARRIVAL. PT COOPERATIVE WITH ASSESSMENT BUT STATED HE REFUSED TO TAKE ANY MEDICATIONS DO TO DECISIONS MADE BY PROVIDERS. PT TOLD ME HE "WILL ONLY TAKE IV ABX. PT STATES HE HAS PAIN BUT REFUSED ANY PAIN MEDICATIONS. THE PT IS UPSET THE DOCTOR CUT BACK PAIN MEDS. PT DOES NOT SEEM TO BE IN IMMENSE PAIN. HE HAS SLEPT MUCH OF THE SHIFT. PT CALLS APPROPRIATELY FOR NEEDS. BED ALARM IN REACH.
[2023-07-03 05:19] LABS: BASOPHILS ABSOLUTE AUTO 0.02 K/mm3 (0.00-0.23); BASOPHILS PERCENT AUTO 0 % (0-2); EOSINOPHILS ABSOLUTE AUTO 0.18 K/mm3 (0.00-0.68); EOSINOPHILS PERCENT AUTO 2 % (0-6); Hematocrit 32.2 % (33.0-51.0); Hemoglobin 10.1 g/dL (11.5-16.0); IMMATURE GRAN ABSOLUTE AUTO 0.03 K/mm3 (0.00-0.10); IMMATURE GRAN PERCENT AUTO 0 % (0-1); LYMPHOCYTES ABSOLUTE AUTO 1.76 K/mm3 (0.84-5.20); LYMPHOCYTES PERCENT AUTO 24 % (21-46); MONOCYTES PERCENT AUTO 9 % (4-13); Mean Corpuscular HGB 29.6 pg (26.0-34.0); Mean Corpuscular HGB Conc 31.4 g/dL (31.5-36.5); Mean Corpuscular Volume 94 fL (80-100); Mean Platelet Volume 10.7 fL (9.1-12.4); NEUTROPHILS ABSOLUTE AUTO 4.73 K/mm3 (1.96-9.15); NEUTROPHILS PERCENT AUTO 64 % (41-73); Platelet Count 267 K/mm3 (150-400); RDW Coefficient Variation 13.6 % (11.7-14.2); RDW Standard Deviation 46.8 fL (35.1-46.3); Red Blood Cell Count 3.41 M/mm3 (3.80-5.20); White Blood Cell Count 7.42 K/mm3 (4.00-11.30)
[2023-07-03 06:34] LABS: Albumin/Globulin Ratio 0.5 (0.8-1.8); Bilirubin, Total 0.5 mg/dL (0.1-1.0); Bun/Creatinine Ratio 28.8 (12.0-20.0); Calcium, Blood 8.7 mg/dL (8.5-10.1); Creatinine, Blood 0.94 mg/dL (0.40-1.00); Globulin, Blood 4.4 g/dL (2.2-4.0); Potassium, Blood 4.4 mmol/L (3.5-5.5); Total Protein, Blood 6.4 g/dL (6.4-8.2)
[2023-07-03 07:18] VITALS: BP 116/62
[2023-07-03 15:33] VITALS: BP 114/62
[2023-07-03] MEDS ORDERED: Magnesium Oxide 400 MG Tab PO SCH (15:55)
[2023-07-03] MEDS ORDERED: Magnesium Citrate 300 ML BTL PO ONE (16:00)
--- NOTE | 2023-07-03 17:29 | NUR ---
SHIFT SUMMARY: WOUND CARE AND BED BATH PROVIDED. CHANGES WERE MADE TO MEDICATIONS: TIZANIDINE CHANGED TO BACLOFEN AND MAGNESIUM OXIDE ADDED FOR MUSCLE SPASMS. PATIENT'S HAIR WAS MATTED; HER SISTER IN LAW CAME IN AND CUT HER HAIR. WOUNDS IN PANNUS/FOLDS ARE IMPROVING. STILL AWAITING BARIACTRIC PLACEMENT FOR SNF. PATIENT DID SIT IN HER BEDSIDE RECLINER TODAY FOR 1-2 HOURS UNTIL NO LONGER TOLERATED. SHE IS CURRENTLY IN BED, CALL LIGHT WITHIN REACH, NO SIGNS OR SYMPTOMS OF DISTRESS. PLAN OF CARE ONGOING.
[2023-07-03 19:56] VITALS: BP 167/69
[2023-07-03] MEDS ORDERED: Baclofen 10 MG Tab PO SCH (21:00)
[2023-07-03 22:09] VITALS: BP 162/89
--- NOTE | 2023-07-03 22:37 | NUR ---
DOCTOR NOTIFIED PT HAD BP OF 167/69 WITH HR OF 89. PT REPORTING PAIN, MEDICATED PER EMAR AND REASSESED BP. BP 162/89, NOTIFIED DR MCCONNELL. PT ASYMPTOMATIC
[2023-07-04 03:22] VITALS: BP 159/91
--- NOTE | 2023-07-04 04:35 | NUR ---
SHIFT SUMMARY PT A&O X4, COOPERATIVR WITH CARE. PT IS BEDREST, LIFT PT. PT COMPLAINS OF LEFT HIP PAIN WITH BACK AND LEG SPASMS. REPOSITIONED FREQUENTLY, PLACED PILLOWS UNFER LEFT HIP AND LEG. MEDICATED PER EMAR. PT HAS SOME EPISODES OF ELEVATED BLOOD PRESSURE, DOCTOR NOTIFIED. PT HAS BELLO IN PLACE, PATENT, AND DRAINING. PT HAS WOUNDS TO PANNUS/FOLDS/AND BREASTS. CLEANED AND TREATED PER WOUND CARE ORDERS. [place] HA SL. PT IS CURRENTLY AWAITING SNF PLACMENT FOR BARIATRIC PT. CALLS APPROPRIATELY FOR NEEDS. CALL LIGHT WITHIN REACH. WILL CONTINUE TO MONITOR.
[2023-07-04 05:03] LABS: BASOPHILS ABSOLUTE AUTO 0.02 K/mm3 (0.00-0.23); BASOPHILS PERCENT AUTO 0 % (0-2); EOSINOPHILS ABSOLUTE AUTO 0.17 K/mm3 (0.00-0.68); EOSINOPHILS PERCENT AUTO 2 % (0-6); Hematocrit 32.1 % (33.0-51.0); Hemoglobin 10.1 g/dL (11.5-16.0); IMMATURE GRAN ABSOLUTE AUTO 0.03 K/mm3 (0.00-0.10); IMMATURE GRAN PERCENT AUTO 0 % (0-1); LYMPHOCYTES ABSOLUTE AUTO 1.47 K/mm3 (0.84-5.20); LYMPHOCYTES PERCENT AUTO 20 % (21-46); MONOCYTES ABSOLUTE AUTO 0.66 K/mm3 (0.16-1.47); MONOCYTES PERCENT AUTO 9 % (4-13); Mean Corpuscular HGB 29.3 pg (26.0-34.0); Mean Corpuscular HGB Conc 31.5 g/dL (31.5-36.5); Mean Corpuscular Volume 93 fL (80-100); Mean Platelet Volume 10.4 fL (9.1-12.4); NEUTROPHILS ABSOLUTE AUTO 5.04 K/mm3 (1.96-9.15); NEUTROPHILS PERCENT AUTO 68 % (41-73); Platelet Count 314 K/mm3 (150-400); RDW Coefficient Variation 13.4 % (11.7-14.2); RDW Standard Deviation 44.7 fL (35.1-46.3); Red Blood Cell Count 3.45 M/mm3 (3.80-5.20); White Blood Cell Count 7.39 K/mm3 (4.00-11.30)
[2023-07-04 05:35] LABS: Albumin, Blood 2.1 g/dL (3.4-5.0); Albumin/Globulin Ratio 0.5 (0.8-1.8); Bilirubin, Total 0.6 mg/dL (0.1-1.0); Bun/Creatinine Ratio 27.2 (12.0-20.0); Calcium, Blood 8.8 mg/dL (8.5-10.1); Creatinine, Blood 0.99 mg/dL (0.40-1.00); Globulin, Blood 4.5 g/dL (2.2-4.0); Potassium, Blood 4.5 mmol/L (3.5-5.5); Total Protein, Blood 6.6 g/dL (6.4-8.2)
[2023-07-04 09:00] VITALS: BP 160/84
--- NOTE | 2023-07-04 16:46 | NUR ---
SHIFT SUMMARY Pt A&Ox3 this shift. Pain managed with current regime. VSS. Up in chair this am with PT and lift. Back to bed with lift ast, slept most of this afternoon. Bean P&I. Complete hygiene, wound care and bed change today. No acute changes. Pain and safety maintained. Will continue to monitor this shift.
[2023-07-04 17:39] VITALS: BP 146/76
[2023-07-04 19:55] VITALS: BP 136/80
[2023-07-04] MEDS ORDERED: Lisinopril 5 MG Tab PO SCH (21:00)
[2023-07-05 03:57] VITALS: BP 121/68
--- NOTE | 2023-07-05 04:02 | NUR ---
SHIFT SUMMARY ADMITTED FOR RHABDOMYOLYSIS. DNR CODE. PLAN IS FOR SNF/REHAB. BELLO IN PLACE. POWERGLIDE IN PLACE. SHE IS A LIFT PATIENT AT THIS TIME, SHE USES A FWW AT HOME. A&O X3, FORGETFUL. UNDER THE PANNUS THERE IS SKIN EXCORIATION. PT/OT ARE SCHEDULED. SHE IS ON RA.
[2023-07-05 05:14] LABS: BASOPHILS ABSOLUTE AUTO 0.03 K/mm3 (0.00-0.23); BASOPHILS PERCENT AUTO 0 % (0-2); EOSINOPHILS ABSOLUTE AUTO 0.21 K/mm3 (0.00-0.68); EOSINOPHILS PERCENT AUTO 3 % (0-6); Hemoglobin 9.7 g/dL (11.5-16.0); IMMATURE GRAN ABSOLUTE AUTO 0.02 K/mm3 (0.00-0.10); IMMATURE GRAN PERCENT AUTO 0 % (0-1); LYMPHOCYTES ABSOLUTE AUTO 1.83 K/mm3 (0.84-5.20); LYMPHOCYTES PERCENT AUTO 27 % (21-46); MONOCYTES PERCENT AUTO 9 % (4-13); Mean Corpuscular HGB 29.2 pg (26.0-34.0); Mean Corpuscular HGB Conc 31.3 g/dL (31.5-36.5); Mean Corpuscular Volume 93 fL (80-100); Mean Platelet Volume 10.6 fL (9.1-12.4); NEUTROPHILS ABSOLUTE AUTO 4.05 K/mm3 (1.96-9.15); NEUTROPHILS PERCENT AUTO 60 % (41-73); Platelet Count 307 K/mm3 (150-400); RDW Coefficient Variation 13.6 % (11.7-14.2); RDW Standard Deviation 46.8 fL (35.1-46.3); Red Blood Cell Count 3.32 M/mm3 (3.80-5.20); White Blood Cell Count 6.74 K/mm3 (4.00-11.30)
[2023-07-05 05:38] LABS: Albumin, Blood 2.1 g/dL (3.4-5.0); Albumin/Globulin Ratio 0.5 (0.8-1.8); Bilirubin, Total 0.5 mg/dL (0.1-1.0); Calcium, Blood 8.8 mg/dL (8.5-10.1); Globulin, Blood 4.2 g/dL (2.2-4.0); Potassium, Blood 4.6 mmol/L (3.5-5.5); Total Protein, Blood 6.3 g/dL (6.4-8.2)
--- NOTE | 2023-07-05 07:30 | NUR ---
ASSUMED CARE: PT RESTING IN BED AT THIS TIME. ON RA, CALL LIGHT IN REACH, ALERT AND ORIENTED FOR BEDSIDE REPORT. DENIES FURTHER NEEDS OR CONCERNS AT THIS TIME.
[2023-07-05 08:00] VITALS: BP 148/81
[2023-07-05 15:44] VITALS: BP 127/69
--- NOTE | 2023-07-05 18:38 | NUR ---
SHIFT SUMMARY: PT GOT UP INTO CHAIR THIS SHIFT VIA LIFT AND STOOD FOR THERAPY. MEDICATED FOR PAIN X2. WOUND CARE COMPLETED PER ORDERS. PLAN IS FOR TRANSFER TO SNF WHEN BED AVAILABLE.
[2023-07-05 20:03] VITALS: BP 116/68
[2023-07-06 02:23] VITALS: BP 98/52
--- NOTE | 2023-07-06 04:19 | NUR ---
SHIFT SUMMARY: PATIENT RESTING IN BED THIS SHIFT, COMPLIANT WITH OFFLOADING, WOUND CARE COMPLETED ORDERED AND PILLOW CASES IN PLACE, C/O LEG AND HIP PAIN THIS SHIFT, MEDICATED PER EMAR X1, A&O X3, BELLO CATH PATENT AND DRAING DARK YELLOW URINE, POWER GLIDE TO RIGHT ARM, DRESSING C/D/I, PATENT AND FLUSHED WITH NS. WAITING PLACEMENT AT SNF. PATIENT RESTING COMFORTABLY IN BED WITH EYES CLOSED AND CALL LIGHT WITHIN REACH AT THIS TIME.
[2023-07-06 07:26] VITALS: BP 111/69
[2023-07-06] MEDS ORDERED: Baclofen 10 MG Tab PO SCH (14:00)
[2023-07-06 15:40] VITALS: BP 124/66
--- NOTE | 2023-07-06 18:16 | NUR ---
REPORT RECEIVED VERIFIED PT A/O VSS CRYING OUT IN BED WITH BACK SPASMING, PT WAS MEDICATED PER AUG. SHAUNNA MEDS WELL AND WAS ABLE TO WORK WITH PT WHO GOT HER UP TO CHAIR WITH SLING. PT SHAUNNA SLING AND CHAIR FOR UP TO 1 HOUR UNTIL WAS CRYING FROM PAIN, PT WAS MEDICATED WITH PO MEDS BUT WAS UNABLE TO CONTROL PAIN, IV MEDS DIDNT HELP MUCH SO PT WAS LIFTED TO BED WITH SLING. WOUNDS TENDED TOO, BACK BUTTOCKS WAS CLEANSED AND COVERED WITH MEPILEX, ABD/ PANIS WOUNDS WERE CLEANED AND COVERED WITH BARRIER CREAM AND ABD PADS. PT SHAUNNA VERY WELL AND HAS PAIN UNDER CONTROL NOW, EATING UP IN BED.
[2023-07-06 21:18] VITALS: BP 145/80
--- NOTE | 2023-07-07 04:15 | NUR ---
SHIFT SUMMARY: PATIENT RESTING IN BED THIS SHIFT, REPOSIONED WITH LIFT ASSISTANCE, C/O PAIN AND DISCOMFORT TO BACK AND LEGS, MEDICATED PER EMAR, BELLO CATH PATENT AND DRAINING DARK YELLOW URINE, WOUND CARE COMPLETED ORDERED AND ABD PADS IN PLACE, A&O X3, VSS.
[2023-07-07 04:29] VITALS: BP 135/63
[2023-07-07 05:05] LABS: BASOPHILS ABSOLUTE AUTO 0.05 K/mm3 (0.00-0.23); BASOPHILS PERCENT AUTO 1 % (0-2); EOSINOPHILS PERCENT AUTO 4 % (0-6); Hematocrit 31.9 % (33.0-51.0); Hemoglobin 9.9 g/dL (11.5-16.0); IMMATURE GRAN ABSOLUTE AUTO 0.01 K/mm3 (0.00-0.10); IMMATURE GRAN PERCENT AUTO 0 % (0-1); LYMPHOCYTES ABSOLUTE AUTO 1.57 K/mm3 (0.84-5.20); LYMPHOCYTES PERCENT AUTO 27 % (21-46); MONOCYTES ABSOLUTE AUTO 0.71 K/mm3 (0.16-1.47); MONOCYTES PERCENT AUTO 12 % (4-13); Mean Corpuscular HGB 29.2 pg (26.0-34.0); Mean Corpuscular Volume 94 fL (80-100); Mean Platelet Volume 10.5 fL (9.1-12.4); NEUTROPHILS ABSOLUTE AUTO 3.18 K/mm3 (1.96-9.15); NEUTROPHILS PERCENT AUTO 56 % (41-73); Platelet Count 291 K/mm3 (150-400); RDW Coefficient Variation 13.8 % (11.7-14.2); RDW Standard Deviation 47.6 fL (35.1-46.3); Red Blood Cell Count 3.39 M/mm3 (3.80-5.20); White Blood Cell Count 5.72 K/mm3 (4.00-11.30)
[2023-07-07 05:29] LABS: Albumin, Blood 2.1 g/dL (3.4-5.0); Albumin/Globulin Ratio 0.5 (0.8-1.8); Bilirubin, Total 0.6 mg/dL (0.1-1.0); Bun/Creatinine Ratio 27.7 (12.0-20.0); Calcium, Blood 8.6 mg/dL (8.5-10.1); Creatinine, Blood 1.12 mg/dL (0.40-1.00); Globulin, Blood 4.1 g/dL (2.2-4.0); Potassium, Blood 4.7 mmol/L (3.5-5.5); Total Protein, Blood 6.2 g/dL (6.4-8.2)
[2023-07-07 07:19] VITALS: BP 130/69
[2023-07-07] MEDS ORDERED: Baclofen 10 MG Tab PO SCH (14:00)
[2023-07-07 15:49] VITALS: BP 104/52
--- NOTE | 2023-07-07 17:16 | NUR ---
REPORT RECEIVED VERIFIED PT A/O VSS BUT C/O SIGNIFICANT PAIN AND CRAMPING WHICH HAS PROVEN TO BE CHRONIC OF ADMIT AND CONSISTENT. PT MEDICATED PER MAR BUT WAS UNSUCCESSFUL SO REPOSITIONING AND DEEP BREATHS WERE ENC. AFTER A TIME PT FOUND RELIEF, MD AWARE OF PAIN/ PT MUCH BETTER AFTER MEDICATION AND WAS ENC TO GET OOB WITH PT. PT TO CHAIR, AND SAT UP FOR OVER AN HOUR. PT THEN ASSISTED WITH SLING BACK TO BED. PT MUCH BETTER AFTER BEING WELL MEDICATED AND IS NOW LAYING QUIETLY IN BED.
[2023-07-07 20:27] VITALS: BP 139/65
--- NOTE | 2023-07-08 03:36 | NUR ---
SHIFT SUMMARY PT A&O X 4, PLEASANT. PT HAD COMPANY IN ROOM IN EARLY EVENING. PT BEGAN MOANING AFTER HER COMPANY LEFT AND WAS MEDICATED WITH NORCO PER EMAR FOR BACK PAIN WITH THERAPEUTIC RESULTS. PT SLEPT THROUGH THE NIGHT. NO ACUTE CHANGES THROUGH THE SHIFT. 07/08/23 PACHECO CASPER RN
[2023-07-08 05:36] VITALS: BP 140/72
--- NOTE | 2023-07-08 05:46 | NUR ---
pt allowed 1 full q2 turn, and one repositioning of right leg. Offered reposition every 2 hours as was needed, pt refused stating "I'm comfortable and don't want to be moved." Offered another reposition at 0530 due to patient moaning, but was not acknowledged despite numerous offers to reposition. Got vitals signs and informed nurse Cari.
[2023-07-08 07:33] VITALS: BP 147/75
--- NOTE | 2023-07-08 08:00 | NUR ---
ASSUMED CARE OF PT- PT WAS ASSISTED WITH REPOSITIONING, GOWN AND LIFT SHEET CHANGED, ALL WOUND DRESSINGS REMOVED, ALL FOLDS CLEANED AND NEW DRESSINGS AND ABSORBENT PADS WERE APPLIED. PT HAD A SPASAM OF HER LOW BACK AND WAS ASSISTED WITH ROM EXERCISES TO STRETCH THE AREA THAT WAS SPASAMING AND THE ISSUE WAS RELIEVED. SHOWED THE PT WITCH MOTIONS HELPED THE MOST. SHE STATED THE STRETCHES HELPED A LOT.
--- NOTE | 2023-07-08 08:45 | NUR ---
PT TRANSFERED TO THE RECLINER AFTER ALL DRESSING CHANGES WERE COMPLETED. SHE HAD ANOTHER EPISODE OF SPASAMS WHILE IN THE RECLINER. ASSISTED AGAIN WITH ROM AND THE ISSUE WAS RESOLVED.
--- NOTE | 2023-07-08 11:20 | NUR ---
PT TRANSFERED VIA LIFT- BACK TO BED FROM THE CHAIR. POSITIONED WITH A PILLOW UNDEER THE LEFT HIP TO OFFLOAD THE PAINFUL JOINT, ROM EXERCISES DONE AGAIN PROVIDING RELIEF. MEDICATED WITH NORCO.
--- NOTE | 2023-07-08 12:15 | NUR ---
PHYSICAL THERAPY WORKING WITH THE PT- DEMONSTRATED THE ROM EXERCISES THAT PROVIDED THE PT WITH RELIEF, SHE STATES HER PAIN IS DOWN TO THE GOAL 5/10. PT HAS SHOWN A GREAT DESIRE TO IMPROVE. SHE IS ASSISTING STAFF WITH THE ROM EXERCISES.
[2023-07-08 15:51] VITALS: BP 121/68
--- NOTE | 2023-07-08 19:11 | NUR ---
SHIFT SUMMARY- PT ALERT AND ORIENTED MODERATE ASSIST WITH BED MOBILITY. PT IS A LIFT PT UP TO THE CHAIR. PT HAS BEEN ACTIVELY PARTICIPATING WITH THERAPIES. THIS EVENING SHE HAD A HIP XRAY COMPLETED. PT WAS ABLE TO MOVE THE HIP WELL ENOUGH TO GET THE IMAGES. PT WAS ASSISTED BACK TO BED WITH THE LIFT.
[2023-07-08 19:47] VITALS: BP 107/72
[2023-07-08] MEDS ORDERED: Famotidine 20 MG Tab PO SCH (21:00)
[2023-07-09 02:09] VITALS: BP 142/85
--- NOTE | 2023-07-09 05:02 | NUR ---
SHIFT SUMMARY NOC PT A/O X 4. PLEASANT AND COOPERATIVE WITH CARE. NO ACUTE CHANGES TO REPORT. HS LISINOPRIL HELD DUE TO LOW BP. WOUND CARE PERFORMED AND ALL OPEN SORES COVERED WITH ORANGE TOP CREAM WITH ABD PADS IN PLACE. CLOSED WOUNDS NYSTATIN OINTMENT APPLIED. MEPILEX DRESSING ON COCCYX SOILED AND NEW DRESSING IN PLACE C/D/I. MEPILEX ON L HIP/THIGH C/D/I, PLACED ON 07/08/23. BELLO IN PLACE PATENT AND DRAINING TO GRAVITY. POWERGLIDE IN [place] IN PLACE. PT WAITING ON BARIATRIC SNF BED AVAILABILITY FOR DISCHARGE FOR REHAB. PT IS CURRENTLY RESTING WITH BED IN LOWEST POSITION, AND CALL LIGHT WITHIN REACH.
[2023-07-09 07:46] VITALS: BP 113/71
[2023-07-09 10:35] LABS: BASOPHILS ABSOLUTE AUTO 0.04 K/mm3 (0.00-0.23); BASOPHILS PERCENT AUTO 1 % (0-2); EOSINOPHILS ABSOLUTE AUTO 0.22 K/mm3 (0.00-0.68); EOSINOPHILS PERCENT AUTO 4 % (0-6); Hematocrit 31.9 % (33.0-51.0); IMMATURE GRAN ABSOLUTE AUTO 0.02 K/mm3 (0.00-0.10); IMMATURE GRAN PERCENT AUTO 0 % (0-1); LYMPHOCYTES ABSOLUTE AUTO 1.52 K/mm3 (0.84-5.20); LYMPHOCYTES PERCENT AUTO 27 % (21-46); MONOCYTES ABSOLUTE AUTO 0.56 K/mm3 (0.16-1.47); MONOCYTES PERCENT AUTO 10 % (4-13); Mean Corpuscular HGB 29.2 pg (26.0-34.0); Mean Corpuscular HGB Conc 31.3 g/dL (31.5-36.5); Mean Corpuscular Volume 93 fL (80-100); Mean Platelet Volume 10.2 fL (9.1-12.4); NEUTROPHILS ABSOLUTE AUTO 3.28 K/mm3 (1.96-9.15); NEUTROPHILS PERCENT AUTO 58 % (41-73); Platelet Count 275 K/mm3 (150-400); RDW Coefficient Variation 13.7 % (11.7-14.2); RDW Standard Deviation 46.6 fL (35.1-46.3); Red Blood Cell Count 3.43 M/mm3 (3.80-5.20); White Blood Cell Count 5.64 K/mm3 (4.00-11.30)
[2023-07-09 15:19] VITALS: BP 122/70
--- NOTE | 2023-07-09 19:46 | NUR ---
SUMMARY- PT A/O X4. STAYED IN BED TODAY. HAS MIN APPETITE, TOLERATING FLUIDS AND HAS ABOUT 10-20% OF MEALS. BELLO IN USE WHILE WOUNDS HEALING. WOUND CARE COMPLETED AT 1745, CLEANSED UNDER FOLDS, DRIED. CALAZYME TO OPEN AREAS, ABD TO PREVENT SKIN TO SKIN CONTACT. MEPILEX TO PANUS, AND GLUT ALL INTACT. BELLO CARE PERFORMED. SKIN APPEARS TO BE HEALING WELL COMPAIRED TO LAST WEEK WHEN I HAD THIS PT. PAIN IN L HIP CONTROLLED WITH NORCO, APPROX Q4. FENT IV GIVEN PRE DRESSING CHANGE, PT TOLERATED WELL. PT ON GERIATRIC AIR BED. REPORTED TO JESSICA ROCHA.
[2023-07-09 20:07] VITALS: BP 118/77
[2023-07-10 02:01] VITALS: BP 128/56
--- NOTE | 2023-07-10 04:33 | NUR ---
SHIFT SUMMARY NOC A/O X 4. PLEASANT AND COOPERATIVE WITH CARE. REPOSITIONED Q2H. BELLO IN PLACE DRAINING TO GRAVITY. POWERGLIDE IN [place]. PT HAD C/O OF SEVERE BACK PAIN AND MEDICATED PER EMAR WITH MODEST EFFECT. WOUND CARE AND DRESSING CHANGES HAVE BEEN COMPLETED THIS SHIFT AFTER PT MEDICATED BEFORE STARTING. PT IS CURRENTLY RESTING WITH BED IN LOWEST POSITION, AND CALL LIGHT WITHIN REACH.
[2023-07-10 04:52] LABS: BASOPHILS ABSOLUTE AUTO 0.05 K/mm3 (0.00-0.23); BASOPHILS PERCENT AUTO 1 % (0-2); EOSINOPHILS ABSOLUTE AUTO 0.21 K/mm3 (0.00-0.68); EOSINOPHILS PERCENT AUTO 3 % (0-6); Hematocrit 32.7 % (33.0-51.0); Hemoglobin 10.2 g/dL (11.5-16.0); IMMATURE GRAN ABSOLUTE AUTO 0.02 K/mm3 (0.00-0.10); IMMATURE GRAN PERCENT AUTO 0 % (0-1); LYMPHOCYTES ABSOLUTE AUTO 1.92 K/mm3 (0.84-5.20); LYMPHOCYTES PERCENT AUTO 31 % (21-46); MONOCYTES ABSOLUTE AUTO 0.55 K/mm3 (0.16-1.47); MONOCYTES PERCENT AUTO 9 % (4-13); Mean Corpuscular HGB 28.8 pg (26.0-34.0); Mean Corpuscular HGB Conc 31.2 g/dL (31.5-36.5); Mean Corpuscular Volume 92 fL (80-100); Mean Platelet Volume 10.3 fL (9.1-12.4); NEUTROPHILS ABSOLUTE AUTO 3.44 K/mm3 (1.96-9.15); NEUTROPHILS PERCENT AUTO 56 % (41-73); Platelet Count 320 K/mm3 (150-400); RDW Coefficient Variation 13.5 % (11.7-14.2); RDW Standard Deviation 46.4 fL (35.1-46.3); Red Blood Cell Count 3.54 M/mm3 (3.80-5.20); White Blood Cell Count 6.19 K/mm3 (4.00-11.30)
[2023-07-10 05:48] LABS: Albumin, Blood 2.4 g/dL (3.4-5.0); Albumin/Globulin Ratio 0.5 (0.8-1.8); Bilirubin, Total 0.6 mg/dL (0.1-1.0); Calcium, Blood 9.3 mg/dL (8.5-10.1); Creatinine, Blood 1.13 mg/dL (0.40-1.00); Globulin, Blood 4.6 g/dL (2.2-4.0); Potassium, Blood 4.7 mmol/L (3.5-5.5)
[2023-07-10 07:16] VITALS: BP 111/59
[2023-07-10 15:33] VITALS: BP 131/80
[2023-07-10] MEDS ORDERED: Ondansetron HCl 2 MG / ML 2ML Vial IV PRN (19:15)
[2023-07-10 19:37] VITALS: BP 111/66
--- NOTE | 2023-07-10 20:13 | NUR ---
SUMMARY- PT A/O X4, USES CALL LIGHT. STAYED IN BED TODAY, NAPPING ON/OFF, STATES SHE SLEPT POORLY. PT HAS L HIP PAIN, CONTROLLED WITH NORCO PRN. PT TOLERATING PO INTAKE, HAS A SMALL APPETITE. BELLO PATENT AND DRAINING CLEAR, MED YELLOW . NO BM TODAY. TWO EPISODES OF NAUSEA THAT COMES OVER PT AND PASSES ON IT'S OWN. WOUND'S TO PANUS, MONS, GLUT CLEANSED AT 1730. REPLACED MEPILEX TO MONS, MEPILEX TO GLUT INTACT. REAPPLIED ZINC/NYSTATIN CREAM TO SKIN FOLDS, THICK OVER OPEN AREAS, ABD TO OPEN AREAS, MICOSTATIN POWDER TO FOLDS WITH NO DRAINAGE UNDER BREAST AND ARM PITS. PT GIVEN TOTAL BED BATH AND LINEN CHANGE. BELLO CARE PERFORMED. AWAITING SNF BARIATRIC BED FOR PLACEMENT. REPORTED TO JESSICA ROCHA
[2023-07-11 02:45] VITALS: BP 87/58
--- NOTE | 2023-07-11 04:15 | NUR ---
SHIFT SUMMARY PT A&OX4 AND ANSWERS QUESTIONS APPROPRIATELY. PT COMPLAINED OF NAUSEA AT START OF SHIFT, ZOFRAN ADMINISTERED AND PT NAUSEA RESOLVED. PT FLOATED TO REDUCE SKIN BREAKDOWN THROUGHOUT SHIFT. PT PREMEDICATED FOR PAIN PRIOR TO WOUND CARE, WOUND CARE TO BE PROVIDED TO PT AROUND 0420. NO ACUTE EVENTS OCCURED DURING SHIFT. PT BP WAS LOW, LEGS ELEVATED AND PT MONITORED. REMAINING VSS. PT LEFT IN A POSITION OF SAFETY WITH FALL PRECAUTIONS IN PLACE AND CALL LIGHT IN REACH.
[2023-07-11 06:00] LABS: Albumin, Blood 2.4 g/dL (3.4-5.0); Albumin/Globulin Ratio 0.5 (0.8-1.8); Bilirubin, Total 0.6 mg/dL (0.1-1.0); Bun/Creatinine Ratio 35.4 (12.0-20.0); Calcium, Blood 9.1 mg/dL (8.5-10.1); Creatinine, Blood 1.3 mg/dL (0.40-1.00); Total Protein, Blood 7.4 g/dL (6.4-8.2)
[2023-07-11 07:31] VITALS: BP 105/63
[2023-07-11 15:40] VITALS: BP 122/71
--- NOTE | 2023-07-11 15:56 | NUR ---
SHIFT SUMMARY A&OX4, COOPERATIVE WITH CARE. PAINFUL T/O SHIFT. MEDICATED PER EMAR. REPORTS SPASMS OF BLE WHEN SUPINE. PATIENT TRANSFERRED FROM BED TO CHAIR VIA LIFT 1X THIS SHIFT AND STAYED IN THE CHAIR FOR AN HOUR BEFORE REQUESTING TO GO BACK TO [facility]. DRESSINGS CHANGED THIS MORNING AT 0800. NO ACUTE CHANGES THIS SHIFT. PLAN IS WAITING FOR PLACEMENT FOR A FACILITY WITH A BARIATRIC BED. PATIENT IS CURRENTLY LAYING ON R SIDE. BED IN LOWEST POSITION. CALL LIGHT WITHIN REACH.
[2023-07-11 19:17] VITALS: BP 112/80
[2023-07-12 04:07] VITALS: BP 116/57
--- NOTE | 2023-07-12 04:14 | NUR ---
SHIFT SUMMARY: A&O X4, RESTING IN BED THIS SHIFT, WOUND CARE COMPLETED ORDERED, C/O PAIN AND DISCOMFORT TO HIPS/LOWER BACK AND MEDICATED PER EMAR, BELLO CATH CARE COMPLETED THIS SHIFT, BELLO PATENT AND DRAINING DARK YELLOW URINE.
[2023-07-12 05:52] LABS: BASOPHILS ABSOLUTE AUTO 0.05 K/mm3 (0.00-0.23); BASOPHILS PERCENT AUTO 1 % (0-2); EOSINOPHILS PERCENT AUTO 3 % (0-6); Hematocrit 32.8 % (33.0-51.0); Hemoglobin 10.3 g/dL (11.5-16.0); IMMATURE GRAN ABSOLUTE AUTO 0.01 K/mm3 (0.00-0.10); IMMATURE GRAN PERCENT AUTO 0 % (0-1); LYMPHOCYTES ABSOLUTE AUTO 2.01 K/mm3 (0.84-5.20); LYMPHOCYTES PERCENT AUTO 29 % (21-46); MONOCYTES ABSOLUTE AUTO 0.71 K/mm3 (0.16-1.47); MONOCYTES PERCENT AUTO 10 % (4-13); Mean Corpuscular HGB 29.5 pg (26.0-34.0); Mean Corpuscular HGB Conc 31.4 g/dL (31.5-36.5); Mean Corpuscular Volume 94 fL (80-100); Mean Platelet Volume 10.8 fL (9.1-12.4); NEUTROPHILS ABSOLUTE AUTO 4.01 K/mm3 (1.96-9.15); NEUTROPHILS PERCENT AUTO 57 % (41-73); Platelet Count 266 K/mm3 (150-400); RDW Coefficient Variation 13.8 % (11.7-14.2); RDW Standard Deviation 46.9 fL (35.1-46.3); Red Blood Cell Count 3.49 M/mm3 (3.80-5.20); White Blood Cell Count 6.99 K/mm3 (4.00-11.30)
[2023-07-12 06:36] LABS: Albumin, Blood 2.4 g/dL (3.4-5.0); Albumin/Globulin Ratio 0.5 (0.8-1.8); Bilirubin, Total 0.6 mg/dL (0.1-1.0); Bun/Creatinine Ratio 37.2 (12.0-20.0); Creatinine, Blood 1.8 mg/dL (0.40-1.00); Globulin, Blood 4.6 g/dL (2.2-4.0); Potassium, Blood 4.5 mmol/L (3.5-5.5)
[2023-07-12 07:38] VITALS: BP 129/67
[2023-07-12] MEDS ORDERED: NS 1,000 ML IV SCH ×2 (11:20→20:25)
[2023-07-12 15:19] VITALS: BP 110/67
--- NOTE | 2023-07-12 17:52 | NUR ---
SHIFT SUMMARY: PT IS ALERT AND ORIENTED X4, USES HER CALL LIGHT, AND IS A LIFT PATIENT. SHE HAS BEEN MORE PAINFUL DURING THE SHIFT; SHOUTING OUT IN PAIN AND HAS BEEN UNWILLING TO GET INTO HER BEDSIDE CHAIR TODAY. SHE DID WORK WITH PT TODAY BY DOING SOME LEG AND ARM EXERCISES. SHE ACKNOWLEDGES THE NEED TO GET UP INTO THE CHAIR AND STATES THAT SHE WILL TRY TOMORROW. HER WOUNDS IN HER PANNUS AND FOLDS ARE SHOWING SIGNS OF IMPROVEMENT AND PATIENT REPORTS IMPROVEMENT WITH PAIN WHILE RECEIVING WOUND CARE. SHE IS IN BED, CALL LIGHT WITHIN REACH, NO SIGNS OR SYMPTOMS OF DISTRESS. STILL AWAITING BARIATRIC SNF PLACEMENT. PLAN OF CARE ONGOING.
[2023-07-12 19:19] VITALS: BP 141/65
--- NOTE | 2023-07-13 04:00 | NUR ---
SHIFT SUMMARY 57 YR F ADMITTED ON 06/23/23. DNR. NO ACUTE CHANGES THIS SHIFT. PT YELLS OUT WHEN SHE IS UNCOMFORTABLE. SHE C/O THAT HER BED IS NOT COMFORTABLE. SETTING ON BED WAS CHANGED TO CONTINUOUSLY RELEIVE PRESSURE POINTS AND SO FAR THIS SEEMS TO HAVE HELPED. POWERG;SRI IN R UPPER ARM FLUSHES BUT DOES NOT DRAW. NS RUNNING @ [address] QUINTERO. ACE IS PATENT AND DRAINING TO GRAVITY. BED IN LOW POSITION AND CALL LIGHT IN REACH.
[2023-07-13 04:48] VITALS: BP 101/53
[2023-07-13 05:26] LABS: BASOPHILS ABSOLUTE AUTO 0.06 K/mm3 (0.00-0.23); BASOPHILS PERCENT AUTO 1 % (0-2); EOSINOPHILS ABSOLUTE AUTO 0.22 K/mm3 (0.00-0.68); EOSINOPHILS PERCENT AUTO 3 % (0-6); Hematocrit 31.2 % (33.0-51.0); Hemoglobin 9.8 g/dL (11.5-16.0); IMMATURE GRAN ABSOLUTE AUTO 0.02 K/mm3 (0.00-0.10); IMMATURE GRAN PERCENT AUTO 0 % (0-1); LYMPHOCYTES ABSOLUTE AUTO 2.06 K/mm3 (0.84-5.20); LYMPHOCYTES PERCENT AUTO 32 % (21-46); MONOCYTES ABSOLUTE AUTO 0.54 K/mm3 (0.16-1.47); MONOCYTES PERCENT AUTO 8 % (4-13); Mean Corpuscular HGB 29.1 pg (26.0-34.0); Mean Corpuscular HGB Conc 31.4 g/dL (31.5-36.5); Mean Corpuscular Volume 93 fL (80-100); Mean Platelet Volume 10.6 fL (9.1-12.4); NEUTROPHILS ABSOLUTE AUTO 3.58 K/mm3 (1.96-9.15); NEUTROPHILS PERCENT AUTO 55 % (41-73); Platelet Count 255 K/mm3 (150-400); RDW Coefficient Variation 13.6 % (11.7-14.2); Red Blood Cell Count 3.37 M/mm3 (3.80-5.20); White Blood Cell Count 6.48 K/mm3 (4.00-11.30)
[2023-07-13 06:14] LABS: Albumin, Blood 2.3 g/dL (3.4-5.0); Albumin/Globulin Ratio 0.5 (0.8-1.8); Bilirubin, Total 0.5 mg/dL (0.1-1.0); Bun/Creatinine Ratio 45.1 (12.0-20.0); Creatinine, Blood 1.33 mg/dL (0.40-1.00); Globulin, Blood 4.5 g/dL (2.2-4.0); Magnesium, Blood 2.5 mg/dL (1.6-2.4); Phosphorus, Blood 4.8 mg/dL (2.5-4.9); Potassium, Blood 4.6 mmol/L (3.5-5.5); Thyroid Stimulating Hormone 1.03 uIU/mL (0.360-4.800); Total Protein, Blood 6.8 g/dL (6.4-8.2); Uric Acid, Blood 6.7 mg/dL (2.6-6.0)
[2023-07-13] MEDS ORDERED: NS 1,000 ML IV SCH (06:35)
[2023-07-13 08:02] VITALS: BP 122/53
[2023-07-13] MEDS ORDERED: Lisinopril 5 MG Tab PO SCH (09:00)
[2023-07-13] MEDS ORDERED: [UNRECOGNIZED DRUG - OTHER] SC SCH (12:00)
[2023-07-13] MEDS ORDERED: DARBEPOETIN ALFA SC SCH (12:00)
[2023-07-13 16:19] VITALS: BP 133/67
[2023-07-13 19:07] VITALS: BP 138/66
--- NOTE | 2023-07-13 19:56 | NUR ---
SHIFT SUMMARY: NO EVENTS OR CHANGES WITH PATIENT THROUGHOUT THE SHIFT. SHE WAS ABLE TO GET INTO THE BEDSIDE RECLINER TODAY, BUT DID NOT TOLERATE WELL OR FOR VERY LONG. GOAL IS TO HAVE THE PATIENT BE IN THE CHAIR TWICE A DAY. PATIENT CONTINUES TO DO EXERCISES IN BED AND REPOSITIONING. SHE IS IN BED, CALL LIGHT WITHIN REACH, NO SIGNS OR SYMPTOMS OF DISTRESS. PLAN OF CARE ONGOING; STILL AWAITING BARIATRIC PLACEMENT.
[2023-07-14 04:26] VITALS: BP 147/81
--- NOTE | 2023-07-14 05:09 | NUR ---
SHIFT SUMMARY 57 YR F ADMITTED ON 06/23/22. DNR. NO ACUTE CHANGES THIS SHIFT. PT WAS ABLE TO FIND A COMFORTABLE SETTING ON HER BARIATRIC BED, AND SHE SLEPT FOR MOST OF THE NIGHT. SHE REFUSED TO WAKE UP FOR 2100 MEDS. NO EPISODES OF YELLING OUT DURING THE NIGHT BUT THIS A.M. SHE WAS SCREAMING FOR HELP AFTER AN EPISODE OF N/V. SHE WAS GIVEN ZOFRAN BY IV. TURNING PT FOR CLEANING AND WOUND CARE WAS VERY PAINFUL FOR HER. PAIN MEDS WERE NOT GIVEN DUE TO N/V. WILL CONTINUE TO MONITOR AND MEDICATE FOR PAIN WHEN N/V HAS RESOLVED.
[2023-07-14 06:06] LABS: BASOPHILS ABSOLUTE AUTO 0.04 K/mm3 (0.00-0.23); BASOPHILS PERCENT AUTO 1 % (0-2); EOSINOPHILS ABSOLUTE AUTO 0.16 K/mm3 (0.00-0.68); EOSINOPHILS PERCENT AUTO 3 % (0-6); Hematocrit 31.7 % (33.0-51.0); Hemoglobin 9.8 g/dL (11.5-16.0); IMMATURE GRAN ABSOLUTE AUTO 0.02 K/mm3 (0.00-0.10); IMMATURE GRAN PERCENT AUTO 0 % (0-1); LYMPHOCYTES ABSOLUTE AUTO 1.65 K/mm3 (0.84-5.20); LYMPHOCYTES PERCENT AUTO 25 % (21-46); MONOCYTES ABSOLUTE AUTO 0.63 K/mm3 (0.16-1.47); MONOCYTES PERCENT AUTO 10 % (4-13); Mean Corpuscular HGB 28.7 pg (26.0-34.0); Mean Corpuscular HGB Conc 30.9 g/dL (31.5-36.5); Mean Corpuscular Volume 93 fL (80-100); Mean Platelet Volume 11.4 fL (9.1-12.4); NEUTROPHILS PERCENT AUTO 62 % (41-73); Platelet Count 241 K/mm3 (150-400); RDW Coefficient Variation 13.5 % (11.7-14.2); RDW Standard Deviation 45.8 fL (35.1-46.3); Red Blood Cell Count 3.42 M/mm3 (3.80-5.20)
[2023-07-14 06:33] LABS: Albumin, Blood 2.3 g/dL (3.4-5.0); Albumin/Globulin Ratio 0.5 (0.8-1.8); Bilirubin, Total 0.6 mg/dL (0.1-1.0); Bun/Creatinine Ratio 39.7 (12.0-20.0); Calcium, Blood 8.9 mg/dL (8.5-10.1); Creatinine, Blood 1.21 mg/dL (0.40-1.00); Globulin, Blood 4.6 g/dL (2.2-4.0); Magnesium, Blood 2.3 mg/dL (1.6-2.4); Phosphorus, Blood 4.4 mg/dL (2.5-4.9); Potassium, Blood 4.7 mmol/L (3.5-5.5); Total Protein, Blood 6.9 g/dL (6.4-8.2)
[2023-07-14 07:35] VITALS: BP 111/66
[2023-07-14] MEDS ORDERED: Cosyntropin 0.25 MG / ML 1ML Vial IM SCH (09:00)
[2023-07-14 16:56] VITALS: BP 126/71
--- NOTE | 2023-07-14 18:10 | NUR ---
SHIFT SUMMARY: PT A&O X4. PLEASANT AND COOPERATIVE WITH CARE. PT ABLE TO GET UP TO CHAIR TWICE THIS SHIFT VIA LIFT. PT TOLERATED 1-2 HOURS AT A TIME IN CHAIR BEFORE SEVERE PAIN. MEDICATED PER EMAR FOR PAIN. PT C/O NAUSEA PRIOR TO DINNER. PANNUS AND FOLDS CLEANED, MEDICATED, AND NEW PILLOWCASES APPLIED. PT STILL HAVING MUSCLE SPASMS. [facility]H LAB COMPLETED THIS SHIFT. CALL LIGHT IN REACH. BED IN LOWEST POSITION.
[2023-07-14 19:19] VITALS: BP 121/67
[2023-07-15 03:20] VITALS: BP 118/94
[2023-07-15 05:17] LABS: BASOPHILS ABSOLUTE AUTO 0.06 K/mm3 (0.00-0.23); BASOPHILS PERCENT AUTO 1 % (0-2); EOSINOPHILS ABSOLUTE AUTO 0.16 K/mm3 (0.00-0.68); EOSINOPHILS PERCENT AUTO 2 % (0-6); Hematocrit 33.3 % (33.0-51.0); Hemoglobin 10.3 g/dL (11.5-16.0); IMMATURE GRAN ABSOLUTE AUTO 0.02 K/mm3 (0.00-0.10); IMMATURE GRAN PERCENT AUTO 0 % (0-1); LYMPHOCYTES ABSOLUTE AUTO 1.85 K/mm3 (0.84-5.20); LYMPHOCYTES PERCENT AUTO 28 % (21-46); MONOCYTES ABSOLUTE AUTO 0.65 K/mm3 (0.16-1.47); MONOCYTES PERCENT AUTO 10 % (4-13); Mean Corpuscular HGB 28.6 pg (26.0-34.0); Mean Corpuscular HGB Conc 30.9 g/dL (31.5-36.5); Mean Corpuscular Volume 93 fL (80-100); Mean Platelet Volume 11.1 fL (9.1-12.4); NEUTROPHILS ABSOLUTE AUTO 3.94 K/mm3 (1.96-9.15); NEUTROPHILS PERCENT AUTO 59 % (41-73); Platelet Count 236 K/mm3 (150-400); RDW Coefficient Variation 13.5 % (11.7-14.2); White Blood Cell Count 6.68 K/mm3 (4.00-11.30)
[2023-07-15 05:38] LABS: Albumin, Blood 2.4 g/dL (3.4-5.0); Albumin/Globulin Ratio 0.5 (0.8-1.8); Bilirubin, Total 0.5 mg/dL (0.1-1.0); Bun/Creatinine Ratio 36.7 (12.0-20.0); Calcium, Blood 9.3 mg/dL (8.5-10.1); Creatinine, Blood 1.2 mg/dL (0.40-1.00); Globulin, Blood 4.7 g/dL (2.2-4.0); Magnesium, Blood 2.2 mg/dL (1.6-2.4); Phosphorus, Blood 4.5 mg/dL (2.5-4.9); Potassium, Blood 4.5 mmol/L (3.5-5.5); Total Protein, Blood 7.1 g/dL (6.4-8.2)
--- NOTE | 2023-07-15 06:40 | NUR ---
Shift Summary Pt AOx4, very painful hips and back. Specialty bed is doing automatic turns, pt manually repositioned for back comfort and medicated per emar. Chronic Bean in place, patent, no signs of infection. Nystatin cream applied to wounds, pillow cases placed in folds to absorb discharge. Pt slept off and on t/o the night. Pt c/o of chest pain and nausea early in the shift, contacted hospitalist who ordered EKG and troponin x 2. EKG shows no ST elevation and troponins were 7 both times. Chest pain resloved, pt medicated with Zofran for nausea which managed well.
[2023-07-15 07:21] VITALS: BP 125/58
--- NOTE | 2023-07-15 16:41 | NUR ---
PT IS ALERT AND ORIENTED X4. SHE WAS MOTIVATED THIS SHIFT TO SIT IN CHAIR FOR LUNCH. HAS DECLINED TO GET IN CHAIR FOR DINNER. REPORTS EXAUSTION FROM WORKING WITH PT TODAY. PT ENCOURAGED TO SIT IN CHAIR ONCE MORE FOR SHIFT. PT DECLINED. PAIN TREATED PER EMAR. NO ACUTE CHANGES
[2023-07-15 16:53] VITALS: BP 123/58
[2023-07-15 19:28] VITALS: BP 111/73
[2023-07-16 01:53] VITALS: BP 126/67
[2023-07-16 06:00] LABS: Hemoglobin 9.7 g/dL (11.5-16.0)
--- NOTE | 2023-07-16 06:13 | NUR ---
Shift Summary Pt AOx4, bedbound d/t obeisity and weakness. She has not had a BM in a week, last night she stated she was gassy and feeling like it was close. No BM this shift. Pt has chronic Bean which is patent, no signs of infection. Wound care provided, nystatin cream applied. Pt c/o painful back, repositioned and medicated per EMAR.
[2023-07-16 06:41] LABS: Albumin, Blood 2.3 g/dL (3.4-5.0); Anion Gap 4 mmol/L (6-16); Blood Urea Nitrogen 47 mg/dL (8-24); Bun/Creatinine Ratio 36.7 (12.0-20.0); CO2, Blood 27 mmol/L (21-32); Calcium, Blood 9.2 mg/dL (8.5-10.1); Chloride, Blood 100 mmol/L (98-108); Creatinine, Blood 1.28 mg/dL (0.40-1.00); Glomerular Filtration Rate 49 (60-); Glucose, Blood 99 mg/dL (70-99); Magnesium, Blood 2.1 mg/dL (1.6-2.4); Potassium, Blood 4.6 mmol/L (3.5-5.5); Sodium, Blood 131 mmol/L (136-145)
[2023-07-16 07:31] VITALS: BP 129/59
[2023-07-16] MEDS ORDERED: Sodium Chloride 1 GM TAB PO SCH (09:00)
[2023-07-16] MEDS ORDERED: NS 1,000 ML IV SCH (15:05)
[2023-07-16 16:31] LABS: BASOPHILS ABSOLUTE AUTO 0.09 K/mm3 (0.00-0.23); BASOPHILS PERCENT AUTO 1 % (0-2); EOSINOPHILS ABSOLUTE AUTO 0.22 K/mm3 (0.00-0.68); EOSINOPHILS PERCENT AUTO 2 % (0-6); Hemoglobin 11.5 g/dL (11.5-16.0); IMMATURE GRAN ABSOLUTE AUTO 0.03 K/mm3 (0.00-0.10); IMMATURE GRAN PERCENT AUTO 0 % (0-1); LYMPHOCYTES ABSOLUTE AUTO 3.39 K/mm3 (0.84-5.20); LYMPHOCYTES PERCENT AUTO 30 % (21-46); MONOCYTES ABSOLUTE AUTO 0.76 K/mm3 (0.16-1.47); MONOCYTES PERCENT AUTO 7 % (4-13); Mean Corpuscular HGB Conc 31.9 g/dL (31.5-36.5); Mean Corpuscular Volume 91 fL (80-100); Mean Platelet Volume 10.9 fL (9.1-12.4); NEUTROPHILS ABSOLUTE AUTO 6.94 K/mm3 (1.96-9.15); NEUTROPHILS PERCENT AUTO 61 % (41-73); Platelet Count 395 K/mm3 (150-400); RDW Coefficient Variation 13.5 % (11.7-14.2); RDW Standard Deviation 45.3 fL (35.1-46.3); Red Blood Cell Count 3.97 M/mm3 (3.80-5.20); White Blood Cell Count 11.43 K/mm3 (4.00-11.30)
[2023-07-16 16:46] VITALS: BP 126/95
--- NOTE | 2023-07-16 17:46 | NUR ---
NO ACUTE CHANGES. PT IN CHAIR FOR 1 HOUR TODAY. P/T WORKED WITH PT. WOUND CARE PROVIDED TO PANUS AND UNDER BREASTS. ABLE TO MAKE NEEDS KNOWN. PT HAS NOT HAD A BM FOR 5 DAYS. BOWEL CARE CONTINUES. PT REPORTS PASSING GAS AND DOES FEEL LIKE SHE WILL HAVE A BM SOON. PT IS ALERT AND ORIENTED AND ABLE TO MAKE NEEDS KNOWN. PAIN TREATED PER EMAR.
[2023-07-16 19:15] VITALS: BP 108/56
[2023-07-17 02:17] VITALS: BP 125/53
--- NOTE | 2023-07-17 03:54 | NUR ---
1900: ASSUMED CARE OF PT, BEDSIDE REPORT RECEIVED FROM AJ STORY. PT IS LAYING IN BED ON HER BACK WITH ALTERNATING AIR BED IN PLACE. A/O X4, DENIES NEEDS AT THIS TIME. BED IN THE LOWEST POSITION, CALL LIGHT WITHIN REACH. PT IS ABLE TO MAKE NEEDS KNOWN. WOUND CARE PROVIDED TO COCYX AND FOLDS AFTER PREMEDICATING, SEE EMR. LINENS CHANGED AND CATHETER CARE PROVIDED AT THIS TIME. PT TOLERATED WELL. SAFETY MEASURES TAKEN, ALL NEEDS ADDRESSED. NO ACUTE EVENTS DURING THE SHIFT.
[2023-07-17 05:01] LABS: Hematocrit 32.1 % (33.0-51.0); Hemoglobin 10.1 g/dL (11.5-16.0)
[2023-07-17 05:26] LABS: Albumin, Blood 2.3 g/dL (3.4-5.0); Albumin/Globulin Ratio 0.5 (0.8-1.8); Bilirubin, Total 0.5 mg/dL (0.1-1.0); Bun/Creatinine Ratio 37.1 (12.0-20.0); Creatinine, Blood 1.32 mg/dL (0.40-1.00); Globulin, Blood 4.6 g/dL (2.2-4.0); Magnesium, Blood 2.3 mg/dL (1.6-2.4); Phosphorus, Blood 5.1 mg/dL (2.5-4.9); Potassium, Blood 4.6 mmol/L (3.5-5.5); Total Protein, Blood 6.9 g/dL (6.4-8.2)
[2023-07-17] MEDS ORDERED: Sodium Chloride 1 GM TAB PO ONE (07:20)
[2023-07-17] MEDS ORDERED: NS 1,000 ML IV SCH (07:20)
[2023-07-17 07:58] VITALS: BP 97/58
[2023-07-17 08:40] VITALS: BP 132/64
[2023-07-17 15:11] VITALS: BP 132/75
[2023-07-17 17:03] LABS: BASOPHILS ABSOLUTE AUTO 0.04 K/mm3 (0.00-0.23); BASOPHILS PERCENT AUTO 1 % (0-2); EOSINOPHILS ABSOLUTE AUTO 0.12 K/mm3 (0.00-0.68); EOSINOPHILS PERCENT AUTO 2 % (0-6); Hematocrit 32.5 % (33.0-51.0); Hemoglobin 10.2 g/dL (11.5-16.0); IMMATURE GRAN ABSOLUTE AUTO 0.03 K/mm3 (0.00-0.10); IMMATURE GRAN PERCENT AUTO 1 % (0-1); LYMPHOCYTES ABSOLUTE AUTO 1.33 K/mm3 (0.84-5.20); LYMPHOCYTES PERCENT AUTO 20 % (21-46); MONOCYTES ABSOLUTE AUTO 0.51 K/mm3 (0.16-1.47); MONOCYTES PERCENT AUTO 8 % (4-13); Mean Corpuscular HGB 28.9 pg (26.0-34.0); Mean Corpuscular HGB Conc 31.4 g/dL (31.5-36.5); Mean Corpuscular Volume 92 fL (80-100); NEUTROPHILS ABSOLUTE AUTO 4.59 K/mm3 (1.96-9.15); NEUTROPHILS PERCENT AUTO 69 % (41-73); Platelet Count 249 K/mm3 (150-400); RDW Coefficient Variation 13.4 % (11.7-14.2); RDW Standard Deviation 45.7 fL (35.1-46.3); Red Blood Cell Count 3.53 M/mm3 (3.80-5.20); White Blood Cell Count 6.62 K/mm3 (4.00-11.30)
--- NOTE | 2023-07-17 17:11 | NUR ---
NO CHANGES THIS SHIFT. PT SLEPT FOR MUCH OF THIS SHIFT. SHE STATES THAT SHE DID NOT SLEEP LAST NIGHT. BOWEL CARE ESCALATED TODAY WITH NO RESULTS. WILL INFORM ONCOMMING RN. IV FLUIDS CURRENTLY RUNNING. PT N/V THIS MORNING. TREATED PER EMAR. ALSO TREATED PAIN PER EMAR. ALERT AND ORIENTED AND ABLE TO MAKE NEEDS KNOWN. LIFT REQUIRED.
[2023-07-17 19:17] VITALS: BP 142/72
--- NOTE | 2023-07-18 04:02 | NUR ---
1900: ASSUMED CARE OF PT, BEDSIDE REPORT RECEIVED FROM AJ STORY. PT IS LAYING IN BED WITH HOB ELEVATED. ALTERNATING MATTRESS IS STATIONARY AT THIS TIME PER PT REQUEST. CONSTIPATION CONTINUES, EDUCATED PT ON USE OF ENEMA. PT DECLINES AT THIS TIME, REPORTS THAT SHE HAS BEEN PASSING GAS AND BELIEVES SHE WILL HAVE A BM SOON. SLEPT MOST OF THE SHIFT. PT HAS HAD BROKEN SLEEP FOR THE PAST FEW DAYS. FLUIDS INFUSING ORDERED TO [place]. TOLERATING WELL. SAFEETY MEASURES TAKEN, ALL NEEDS ADDRESSED.
[2023-07-18 04:53] VITALS: BP 145/74
[2023-07-18 05:48] LABS: Hematocrit 33.1 % (33.0-51.0); Hemoglobin 10.4 g/dL (11.5-16.0)
[2023-07-18 06:28] LABS: Albumin, Blood 2.4 g/dL (3.4-5.0); Albumin/Globulin Ratio 0.5 (0.8-1.8); Bilirubin, Total 0.4 mg/dL (0.1-1.0); Bun/Creatinine Ratio 35.5 (12.0-20.0); Calcium, Blood 9.6 mg/dL (8.5-10.1); Creatinine, Blood 1.21 mg/dL (0.40-1.00); Globulin, Blood 4.7 g/dL (2.2-4.0); Magnesium, Blood 2.3 mg/dL (1.6-2.4); Phosphorus, Blood 4.4 mg/dL (2.5-4.9); Potassium, Blood 4.6 mmol/L (3.5-5.5); Total Protein, Blood 7.1 g/dL (6.4-8.2)
[2023-07-18 07:42] VITALS: BP 110/65
[2023-07-18] MEDS ORDERED: Sodium Chloride 1 GM TAB PO SCH (14:00)
[2023-07-18 14:56] VITALS: BP 106/71
--- NOTE | 2023-07-18 17:49 | NUR ---
SHIFT SUMMARY NO ACUTE CHANGES THIS SHIFT. CALL LIGHT WITHIN REACH AND PT ABLE TO MAKE NEEDS KNOWN.
[2023-07-18 19:28] VITALS: BP 132/69
[2023-07-19 02:37] VITALS: BP 129/65
[2023-07-19 05:04] LABS: BASOPHILS ABSOLUTE AUTO 0.04 K/mm3 (0.00-0.23); BASOPHILS PERCENT AUTO 1 % (0-2); EOSINOPHILS ABSOLUTE AUTO 0.12 K/mm3 (0.00-0.68); EOSINOPHILS PERCENT AUTO 2 % (0-6); Hemoglobin 9.8 g/dL (11.5-16.0); IMMATURE GRAN ABSOLUTE AUTO 0.02 K/mm3 (0.00-0.10); IMMATURE GRAN PERCENT AUTO 0 % (0-1); LYMPHOCYTES ABSOLUTE AUTO 1.82 K/mm3 (0.84-5.20); LYMPHOCYTES PERCENT AUTO 26 % (21-46); MONOCYTES PERCENT AUTO 9 % (4-13); Mean Corpuscular HGB 28.8 pg (26.0-34.0); Mean Corpuscular HGB Conc 31.6 g/dL (31.5-36.5); Mean Corpuscular Volume 91 fL (80-100); Mean Platelet Volume 10.7 fL (9.1-12.4); NEUTROPHILS ABSOLUTE AUTO 4.46 K/mm3 (1.96-9.15); NEUTROPHILS PERCENT AUTO 63 % (41-73); Platelet Count 228 K/mm3 (150-400); RDW Coefficient Variation 13.4 % (11.7-14.2); RDW Standard Deviation 45.1 fL (35.1-46.3); White Blood Cell Count 7.06 K/mm3 (4.00-11.30)
--- NOTE | 2023-07-19 05:26 | NUR ---
SHIFT SUMMARY NO ACUTE CHANGES THROUGH THE NIGHT, A&O X4, RA, VSS, CALLS FOR ASSISTANCE PRN, AIR MATTRESS FOR PRESSURE, BELLO PATENT, PAOLA URINE NOTED, PT SLEEPING AT THIS TIME, RESP UNLABORED, WCTM & REPORT TO ONCOMING NURSE.
[2023-07-19 06:36] LABS: Albumin, Blood 2.3 g/dL (3.4-5.0); Anion Gap 3 mmol/L (6-16); Blood Urea Nitrogen 36 mg/dL (8-24); Bun/Creatinine Ratio 29.8 (12.0-20.0); CO2, Blood 29 mmol/L (21-32); Calcium, Blood 9.2 mg/dL (8.5-10.1); Chloride, Blood 102 mmol/L (98-108); Creatinine, Blood 1.21 mg/dL (0.40-1.00); Glomerular Filtration Rate 52 (60-); Glucose, Blood 101 mg/dL (70-99); Phosphorus, Blood 4.4 mg/dL (2.5-4.9); Potassium, Blood 4.6 mmol/L (3.5-5.5); Sodium, Blood 134 mmol/L (136-145)
[2023-07-19 08:07] VITALS: BP 112/61
[2023-07-19 16:49] VITALS: BP 102/75
--- NOTE | 2023-07-19 17:38 | NUR ---
SHIFT SUMMARY NO ACUTE CHANGES THIS SHIFT. 24HR URINE COLLECTION CURRENT AND ONGOING, SEE ORDERS. CALL LIGHT WITHIN REACH AND PT ABLE TO MAKE NEEDS KNOWN.
[2023-07-19 20:02] VITALS: BP 109/63
[2023-07-20 04:51] VITALS: BP 134/77
[2023-07-20 05:02] LABS: BASOPHILS ABSOLUTE AUTO 0.06 K/mm3 (0.00-0.23); BASOPHILS PERCENT AUTO 1 % (0-2); EOSINOPHILS ABSOLUTE AUTO 0.12 K/mm3 (0.00-0.68); EOSINOPHILS PERCENT AUTO 1 % (0-6); Hematocrit 31.8 % (33.0-51.0); IMMATURE GRAN ABSOLUTE AUTO 0.04 K/mm3 (0.00-0.10); IMMATURE GRAN PERCENT AUTO 0 % (0-1); LYMPHOCYTES ABSOLUTE AUTO 2.29 K/mm3 (0.84-5.20); LYMPHOCYTES PERCENT AUTO 25 % (21-46); MONOCYTES ABSOLUTE AUTO 0.82 K/mm3 (0.16-1.47); MONOCYTES PERCENT AUTO 9 % (4-13); Mean Corpuscular HGB 29.1 pg (26.0-34.0); Mean Corpuscular HGB Conc 31.4 g/dL (31.5-36.5); Mean Corpuscular Volume 92 fL (80-100); Mean Platelet Volume 10.9 fL (9.1-12.4); NEUTROPHILS PERCENT AUTO 64 % (41-73); Platelet Count 256 K/mm3 (150-400); RDW Coefficient Variation 13.6 % (11.7-14.2); RDW Standard Deviation 46.2 fL (35.1-46.3); Red Blood Cell Count 3.44 M/mm3 (3.80-5.20); White Blood Cell Count 9.33 K/mm3 (4.00-11.30)
[2023-07-20 05:32] LABS: Bun/Creatinine Ratio 27.3 (12.0-20.0); Calcium, Blood 9.2 mg/dL (8.5-10.1); Creatinine, Blood 1.32 mg/dL (0.40-1.00); Potassium, Blood 4.7 mmol/L (3.5-5.5)
--- NOTE | 2023-07-20 06:22 | NUR ---
Shift Summary Pt has not had a BM in over 1 week, gave fleet enema per EMAR. No BM after enema. She is still very painful, medicated per emar. Mepilexes changed on bottom to help prevent skin breakdown. She is AOx4, awaiting placement.
[2023-07-20 07:27] VITALS: BP 127/76
[2023-07-20 08:42] LABS: Protein, Urine Quantitative 39.5 mg/dL (0.0-11.9)
[2023-07-20] MEDS ORDERED: Sodium Chloride 1 GM TAB PO SCH (09:00)
[2023-07-20 16:38] VITALS: BP 119/67
--- NOTE | 2023-07-20 17:22 | NUR ---
NO BOWEL MOVEMENT SO FAR THIS SHIFT. SECOND ENEMA ADMINISTERED WITH NO RESULTS. HYPOACTIVE BOWEL SOUNDS, PT STATES SHE IS PASSING GAS FREQUENTLY. DENIES PAIN IN ABDOMEN. NO ACUTE CHANGE THIS SHIFT. ALERT AND ORIENTED X4. WOUND CARE COMPLETED AT 1100, REPLACED MEPILEXES ON PANNUS, VAGINA, BUTTOCK. TREATED PAIN PER EMAR. PT DECLINED TO SIT IN CHAIR DUE TO PAIN CAUSED BY BELLO CATHETER WHILE SITTING. PT WAS PAINFUL TO TURN. ABLE TO STAY ON RIGHT SIDE FOR 15 MINUTES. PAIN WITH L HIP, AGGREVATED BY MOVEMENT. SKIN PEELING.
[2023-07-20 20:24] VITALS: BP 150/61
[2023-07-21 02:37] VITALS: BP 117/68
[2023-07-21 05:55] LABS: BASOPHILS ABSOLUTE AUTO 0.07 K/mm3 (0.00-0.23); BASOPHILS PERCENT AUTO 1 % (0-2); EOSINOPHILS ABSOLUTE AUTO 0.16 K/mm3 (0.00-0.68); EOSINOPHILS PERCENT AUTO 2 % (0-6); Hematocrit 32.4 % (33.0-51.0); Hemoglobin 10.2 g/dL (11.5-16.0); IMMATURE GRAN ABSOLUTE AUTO 0.03 K/mm3 (0.00-0.10); IMMATURE GRAN PERCENT AUTO 0 % (0-1); LYMPHOCYTES ABSOLUTE AUTO 2.27 K/mm3 (0.84-5.20); LYMPHOCYTES PERCENT AUTO 25 % (21-46); MONOCYTES ABSOLUTE AUTO 0.73 K/mm3 (0.16-1.47); MONOCYTES PERCENT AUTO 8 % (4-13); Mean Corpuscular HGB 28.7 pg (26.0-34.0); Mean Corpuscular HGB Conc 31.5 g/dL (31.5-36.5); Mean Corpuscular Volume 91 fL (80-100); Mean Platelet Volume 10.9 fL (9.1-12.4); NEUTROPHILS ABSOLUTE AUTO 5.69 K/mm3 (1.96-9.15); NEUTROPHILS PERCENT AUTO 64 % (41-73); Platelet Count 230 K/mm3 (150-400); RDW Coefficient Variation 13.5 % (11.7-14.2); RDW Standard Deviation 45.8 fL (35.1-46.3); Red Blood Cell Count 3.55 M/mm3 (3.80-5.20); White Blood Cell Count 8.95 K/mm3 (4.00-11.30)
--- NOTE | 2023-07-21 06:20 | NUR ---
SHIFT SUMMARY: PT IS ADMITTED FOR RHABDOMYOLYSIS AND IS A DNR. IS ALERT AND ABLE TO MAKE NEEDS KNOWN. ADLs HAVE BEEN 2P FOR CARES AND DID NOT GET OUT OF BED THIS SHIFT. DENIES PAIN OR DISCOMFORT WHEN ASKED. POWERGLIDE TO RIGHT UPPER ARM IS PATENT WITH DRESSING THAT IS CDI. FOLLY IN PLACE AND IS DRAINING CLEAR YELLOW URINE.
[2023-07-21 06:30] LABS: Magnesium, Blood 2.1 mg/dL (1.6-2.4)
[2023-07-21 06:31] LABS: Albumin, Blood 2.5 g/dL (3.4-5.0); Anion Gap 3 mmol/L (6-16); Blood Urea Nitrogen 43 mg/dL (8-24); Bun/Creatinine Ratio 29.1 (12.0-20.0); CO2, Blood 27 mmol/L (21-32); Calcium, Blood 9.4 mg/dL (8.5-10.1); Chloride, Blood 102 mmol/L (98-108); Creatinine, Blood 1.48 mg/dL (0.40-1.00); Glomerular Filtration Rate 41 (60-); Glucose, Blood 104 mg/dL (70-99); Potassium, Blood 4.9 mmol/L (3.5-5.5); Sodium, Blood 132 mmol/L (136-145)
[2023-07-21 07:42] VITALS: BP 123/74
[2023-07-21] MEDS ORDERED: NS 1,000 ML IV SCH (09:55)
[2023-07-21 09:59] VITALS: BP 120/67
[2023-07-21] MEDS ORDERED: Magnesium Hydroxide Conc 10 ML UDC PO PRN (12:20)
[2023-07-21] MEDS ORDERED: Bisacodyl 10 MG Supp PR PRN (12:25)
[2023-07-21 16:25] VITALS: BP 118/64
[2023-07-21 19:19] VITALS: BP 116/60
--- NOTE | 2023-07-21 20:02 | NUR ---
shift summary- PT HAD A LOW GRADE FEVER THIS EVENING 100.0 MEDICATED WITH TYLENOL. PT WAS C/O SOME CHEST PAIN, HOWEVER SHE STATED IT SEEMS MUSCULAR, THIS WAS AFTER SHE DID AN UPPER BODY ARM WORKOUT WITH OT. SPOKE TO HE AGREED TYLENOL WAS RECOMENDED. PT SATES THE CHEST PAIN WENT AWAY AFTER TYLENOL. WOUND CARE WAS PERFORMED TODAY, AND ABD PADS WERE USED TO WICK MOISTURE. ALL MEPILEX WERE CHANGED. PT HAS HAD NO STOOL SINCE THE . SHE STATES SHE FEELS CONSTIPATED, ENEMAS AND SENNA HAVE BEEN INEFFECTIVE, PT HAD MOM THIS EVENING WITH NO RESULT THUS FAR. NOTED THAT PT URINE HAS A LITTLE SEDIMENT IN IT. BELLO IN PLACE DUE TO THE WOUNDS IN HER GROIN AND BOTTOM. BELLO WAS PLACED ON ADMIT AND MAY NEED TO BE CHANGED. PASSED ON TO NIGHT RN IN BEDSIDE REPORT. PT IN BED, CALL LIGHT IN REACH, SHE CALLS APPROPRIATELY, PAIN MEDS HAVE BEEN OFFERED AND REFUSED T/O THE SHIFT. PT WEIGHT WAS RECHECKED (PER HER REQUEST) AND DOCUMENTED. NO S&S OF DISTRESS AT THE TIME OF BEDSIDE REPORT, NS RUNNING AT 75ML/HR PER DR MARQUIS ORDER.
[2023-07-21] MEDS ORDERED: Docusate Sodium 100 MG Cap PO SCH (21:00)
[2023-07-21] MEDS ORDERED: Sennosides 8.6 MG Tab PO SCH (21:00)
[2023-07-22 03:16] VITALS: BP 115/69
--- NOTE | 2023-07-22 05:03 | NUR ---
SHIFT SUMMARY PT A&OX4 AND PLEASANT. PT C/O PAIN IN LEFT HIP AND REPOSITIONED AND MEDICATED PER EMAR. ABD DRESSINGS CHANGED UNDER PANUS AND LEFT BREAST. VSS. PT CALLS APPROPRIATELY. AIR BED AUTOMATICALLY TURNS PT EVERY 3MIN. BED IN LOWEST POSITION AND CALL LIGHT IN REACH.
[2023-07-22 07:31] VITALS: BP 117/67
[2023-07-22 08:22] LABS: Creatinine, Blood 1.23 mg/dL (0.40-1.00)
--- NOTE | 2023-07-22 10:49 | NUR ---
PATIENT REQUESTED TO WAIT AN HOUR ON SODIUM CHLORIDE TABLET TO TAKE WITH APPLESAUCE IT SOMETIMES MAKE HER VOMIT.
[2023-07-22] MEDS ORDERED: Polyethylene Glycol 3350 17 gm PO SCH (13:00)
[2023-07-22 15:55] VITALS: BP 127/74
[2023-07-22 19:23] VITALS: BP 130/68
--- NOTE | 2023-07-22 19:29 | NUR ---
SHIFT SUMMARY PATIENT WITH 1 EPISODE OF VOMITING AT SHIFT CHANGE. ZOFRAN GIVEN. PATIENT NAPPED AND ATE BREAKFAST AROUND 1000 WITH AM MEDICATIONS ADMINISTERED. NAUSEA SUBSIDED. PATIENT MEDICATED FOR PAIN ONCE TODAY PER EMAR WITH GOOD RELIEF. BED IN LOWEST POSITIOIN, CALL LIGHT IN REACH. PATIENT ABLE TO MAKE NEEDS KNOWN.
[2023-07-23 03:21] VITALS: BP 134/64
--- NOTE | 2023-07-23 06:43 | NUR ---
SHIFT SUMMARY PT A&OX4. NO ACUTE CHANGES. ABD DRESSINGS UNDER PANUS AND FOAM DRESSINGS ON BOTTOM AND MARYLU AREA CHANGED. PT C/O PAIN IN LEFT HIP AND MEDICATED PER EMAR WITH GOOD EFFECT. POWER GLIDE DRESSING CHANGED. AIR BED TURNED PT TOLERATED T/O NIGHT. VSS. BED IN LOWEST POSITION AND CALL LIGHT IN REACH.
[2023-07-23 07:50] VITALS: BP 97/55
[2023-07-23] MEDS ORDERED: Lactulose 200 GM/300 ML Enema 300ML BTL PR ONE (12:25)
--- NOTE | 2023-07-23 18:30 | NUR ---
SHIFT SUMMARY C/O PAIN THIS SHIFT TO LEFT HIP AND LOWER BACK, GIVEN NORCO IN AM AND BED PLACED TO STATIC FOR SHORT TIME. BED TURNING RESUMED WITH NO FURTHER COMPLAINTS. GIVEN LACTULOSE ENEMA THIS SHIFT WITH VERY MINIMAL RESULTS. PATIENT REFUSING BLELO CATH CHANGE THIS SHIFT, STATING SHE HAS ONE MORE DAY AND SHE WILL NEED TO BE "PUT OUT" TO HAVE IT CHANGED. WOUNDS HAVE MUCH IMPROVED FROM 2 WEEKS AGO. CARES ONGOING.
[2023-07-23 19:36] VITALS: BP 127/59
[2023-07-24 02:44] VITALS: BP 130/69
--- NOTE | 2023-07-24 04:18 | NUR ---
SHIFT SUMMARY. PATIENT IS ALERT AND ORIENTED, COOPERATIVE WITH CARE, AND ABLE TO MAKE HER NEEDS KNOWN. PATIENT HAD SOME NAUSEA LAST NIGHT; MEDICATED PER EMAR PRIOR TO 2100 MEDICATION ADMINISTRATION; PATIENT REPORTS EMESIS AFTER TAKING MEDS DURING THE DAY. PATIENT REFUSED MIRALAX POWDER WITH 2100 MEDS ON 07/23/23; PATIENT HAD LARGE BM. PATIENTS BED IS SET TO TURN PATIENT FOR PATIENT COMFORT AND PREVENTION OF PRESSURE INJURY. PATIENTS BED IS LOCKED IN THE LOWEST POSITION WITH CALL LIGHT IN REACH, NO S/S OF DISTRESS NOTED AT THIS TIME. CARE IS ONGOING.
[2023-07-24 04:49] LABS: Hematocrit 32.4 % (33.0-51.0); Hemoglobin 10.3 g/dL (11.5-16.0)
[2023-07-24 05:40] LABS: Albumin, Blood 2.6 g/dL (3.4-5.0); Anion Gap 6 mmol/L (6-16); Blood Urea Nitrogen 38 mg/dL (8-24); Bun/Creatinine Ratio 31.7 (12.0-20.0); CO2, Blood 26 mmol/L (21-32); Calcium, Blood 9.8 mg/dL (8.5-10.1); Chloride, Blood 101 mmol/L (98-108); Glomerular Filtration Rate 53 (60-); Glucose, Blood 120 mg/dL (70-99); Magnesium, Blood 2.4 mg/dL (1.6-2.4); Phosphorus, Blood 4.6 mg/dL (2.5-4.9); Potassium, Blood 4.9 mmol/L (3.5-5.5); Sodium, Blood 133 mmol/L (136-145)
[2023-07-24 08:12] VITALS: BP 123/76
[2023-07-24] MEDS ORDERED: Psyllium 1 EA Pack PO SCH (09:00)
[2023-07-24] MEDS ORDERED: Peg/Electrolytes 4,000 ML BTL PO ONE ×2 (12:20→13:55)
[2023-07-24 15:44] VITALS: BP 137/71
--- NOTE | 2023-07-24 18:17 | NUR ---
SHIFT SUMMARY REMOVED BELLO CATH THIS SHIFT, TOLERATED OKAY. USING BEDPAN SUCCESSFULLY REMAINDER OF SHIFT. SEVERAL BOWEL MOVEMENTS. DECLINING TO DRINK GOLYTLY STATING IT WILL MAKE HER VOMIT, SHE DID DRINK ABOUT 50ML BEFORE REFUSING. ABLE TO BOOST HERSELF IN BED TODAY USING HER ARMS AND TR[place]BERG POSITION OF BED, ABLE TO TURN HERSELF WITH MODERATE 1 ASSIST, ASSISTED IN BATHING HERSELF WITH BATH WIPES. WOUND CARE COMPLETE WITH MINIMAL COMPLAINTS OF DISCOMFORT. CARES ONGOING
[2023-07-24 19:11] VITALS: BP 132/69
[2023-07-25 03:01] VITALS: BP 125/57
--- NOTE | 2023-07-25 04:17 | NUR ---
SHIFT SUMMARY PT A&OX3-4 AND ANSWERS QUESTIONS APPROPRIATELY. PT REFUSED METAMUCIL AND GOLYTELY WHEM ADMINISTERING HS MEDICATIONS. GOLYTELY WAS GIVEN DURING DAY SHIFT BUT PT REFUSES TO DRINK STATING "IF I TRY TO DRINK ANYMORE I WILL THROW UP." WOUND CARE DONE AT AROUND 2320 AND PILLOW CASES PLACED BETWEEN FOLDS TO PREVENT SKIN CONTACT AND FURTHER SKIN BREAKDOWN. PT MEDICATION FOR PAIN PRN. PT VSS, NO COMPLAINTS OF CP OR SOB. NO ACUTE EVENTS AT THIS TIME. PT LEFT IN A POSITION OF SAFETY WITH FALL PRECAUTIONS IN PLACE AND CALL LIGHT IN REACH.
[2023-07-25 07:50] VITALS: BP 116/81
[2023-07-25 16:29] VITALS: BP 136/70
--- NOTE | 2023-07-25 16:35 | NUR ---
SHIFT SUMMARY: NO EVENTS OR CHANGES WITH THE PATIENT THOUGHOUT THE SHIFT. HER PAIN HAS BEEN WELL MANAGED AND SHE HAS ONLY REQUESTING PAIN MEDICATION ONCE TODAY AND DECLINE THIS AFTERNOON WHEN OFFERED. SHE HAS BEEN IN BED, UNABLE TO TRANSFER TO BEDSIDE RECLINER AT THIS TIME DUE TO BARIATRIC BED BEING USED IN A DIFFERENT PATIENT ROOM AT THIS TIME AND THERE BEING NO OTHER BARIATRIC CHAIRS AVAILABLE AT THIS TIME. WOUND CARE PROVIDED TO PATIENT'S FOLDS; IMPROVMENT IN OPEN AREAS SINCE I LAST WAS THE PRIMARY NURSE FOR THE PATIENT. PATIENT IS ALERT AND ORIENTED, PLEASANT AND COOPERATIVE WITH CARE. SHE IS STILL AWAITING BARIATRIC PLACEMENT AT A CARE FACILITY IN [place] AT THIS TIME. CALL LIGHT WITHIN REACH, NO SIGNS OR SYMPTOMS OF DISTRESS, PLAN OF CARE ONGOING.
[2023-07-25 19:30] VITALS: BP 117/69
[2023-07-25 19:41] LABS: ALBUMIN %,URINE 43.4 %; ALPHA-1 %,URINE 4.2 %; ALPHA-2 %,URINE 13.9 %; BETA GLOBULIN %,URINE 20.9 %; GAMMA GLOBULIN %,URINE 17.6 %; HOURS COLLECTED 24 hr; TOTAL PROTEIN,URINE-PER VOLUME 19 mg/dL; TOTAL VOLUME 2000 mL; URINE 24 HOUR PROTEIN 380 mg/d (40-150)
[2023-07-26 02:47] VITALS: BP 128/71
--- NOTE | 2023-07-26 04:09 | NUR ---
SHIFT SUMMARY PT A&OX4 AND ANSWERS QUESTIONS APPROPRIATELY. PT RECEIVED HS MEDICATIONS AND PRN PAIN MEDS WHEN REQUESTED. WOUND CARE PERFORMED, PT TOLERATED INTERVENTION WELL. PT SLEPT THROUGH MOST OF SHIFT WITH EYES CLOSED AND RESPIRATIONS UNLABORED. VSS, NO COMPLAINTS TO CP OR SOB. NO ACUTE EVENTS AT THIS TIME. PT LEFT IN A POSITION OF SAFETY WITH APPROPRIATE FALL PRECAUTIONS IN PLACE AND CALL LIGHT IN REACH.
[2023-07-26 05:02] LABS: BASOPHILS ABSOLUTE AUTO 0.03 K/mm3 (0.00-0.23); BASOPHILS PERCENT AUTO 0 % (0-2); EOSINOPHILS ABSOLUTE AUTO 0.11 K/mm3 (0.00-0.68); EOSINOPHILS PERCENT AUTO 1 % (0-6); Hematocrit 31.2 % (33.0-51.0); Hemoglobin 9.9 g/dL (11.5-16.0); IMMATURE GRAN ABSOLUTE AUTO 0.05 K/mm3 (0.00-0.10); IMMATURE GRAN PERCENT AUTO 1 % (0-1); LYMPHOCYTES PERCENT AUTO 21 % (21-46); MONOCYTES ABSOLUTE AUTO 0.95 K/mm3 (0.16-1.47); MONOCYTES PERCENT AUTO 10 % (4-13); Mean Corpuscular HGB 28.7 pg (26.0-34.0); Mean Corpuscular HGB Conc 31.7 g/dL (31.5-36.5); Mean Corpuscular Volume 90 fL (80-100); Mean Platelet Volume 11.2 fL (9.1-12.4); NEUTROPHILS ABSOLUTE AUTO 6.23 K/mm3 (1.96-9.15); NEUTROPHILS PERCENT AUTO 67 % (41-73); Platelet Count 199 K/mm3 (150-400); RDW Coefficient Variation 13.7 % (11.7-14.2); RDW Standard Deviation 45.1 fL (35.1-46.3); Red Blood Cell Count 3.45 M/mm3 (3.80-5.20); White Blood Cell Count 9.27 K/mm3 (4.00-11.30)
[2023-07-26 05:44] LABS: Magnesium, Blood 2.4 mg/dL (1.6-2.4)
[2023-07-26 05:45] LABS: Albumin, Blood 2.4 g/dL (3.4-5.0); Albumin/Globulin Ratio 0.5 (0.8-1.8); Bilirubin, Total 0.7 mg/dL (0.1-1.0); Bun/Creatinine Ratio 30.8 (12.0-20.0); Calcium, Blood 9.5 mg/dL (8.5-10.1); Creatinine, Blood 1.59 mg/dL (0.40-1.00); Globulin, Blood 4.6 g/dL (2.2-4.0); Phosphorus, Blood 4.6 mg/dL (2.5-4.9); Potassium, Blood 4.6 mmol/L (3.5-5.5)
[2023-07-26] MEDS ORDERED: NS 1,000 ML IV SCH (06:20)
[2023-07-26 06:59] VITALS: BP 122/75
[2023-07-26] MEDS ORDERED: Sodium Chloride 1 GM TAB PO SCH (09:00)
[2023-07-26 16:02] VITALS: BP 106/67
--- NOTE | 2023-07-26 17:33 | NUR ---
SHIFT SUMMARY: NO EVENTS OR CHANGES WITH PATIENT DURING THE SHIFT. SHE WAS STARTED ON NS TODAY AT 50ML/HR PER QUINTERO. SHE WAS TRANSFERRED TO THE BEDSIDE RECLINER TODAY AND TOLERATED IT FOR ABOUT AN HOUR AND SEEMED TO HAVE TOLERATED IT BETTER THAN THE PREVIOUS BARIATRIC RECLINER SHE HAD. SHE IS BACK IN BED, CALL LIGHT WITHIN REACH, NO SIGNS OR SYMPTOMS OF DISTRESS, STILL AWAITING PLACEMENT, NO SIGNS OR SYMPTOMS OF DISTRESS. PLAN OF CARE ONGOING.
[2023-07-26 20:17] VITALS: BP 139/64
[2023-07-27 04:41] VITALS: BP 109/95
--- NOTE | 2023-07-27 04:50 | NUR ---
SHIFT SUMMARY. PATIENT IS PLEASANT AND COOPERATIVE WITH CARE. PATIENT IS ALERT AND ABLE TO ANSWER QUESTIONS APPROPRIATELY. NO ACUTE EVENTS NOTED THIS SHIFT. PATIENT ABLE TO ASSIST WITH ROLLING FOR INCONTINENCE CHANGES. PATIENT IS CURRENTLY AWAINTING PLACEMENT WHEN A BARIATRIC BED BECOMES AVALIABLE. PATIENTS NEEDS ASSESSED AND ADDRESSED. INTERVENTION FOR WOUNDS AND REDNESS TO FOLDS DONE X2 TONIGHT, NEW SOFT PILLOW CASES APPLIED IN FOLDS FOR MOISURE ABSORBANCE. NO S/S OF DISTRESS NOTED AT THIS TIME. BED IS LOCKED IN THE LOWEST POSITION WITH CALL LIGHT AND BED CONTROLS IN REACH. NO S/S OF DISTRESS NOTED AT THIS TIME. CARE IS ONGOING.
[2023-07-27 05:13] LABS: Hematocrit 30.6 % (33.0-51.0); Hemoglobin 9.7 g/dL (11.5-16.0)
[2023-07-27 05:44] LABS: Albumin, Blood 2.4 g/dL (3.4-5.0); Anion Gap 2 mmol/L (6-16); Blood Urea Nitrogen 54 mg/dL (8-24); Bun/Creatinine Ratio 33.5 (12.0-20.0); CO2, Blood 28 mmol/L (21-32); Calcium, Blood 9.5 mg/dL (8.5-10.1); Chloride, Blood 101 mmol/L (98-108); Creatinine, Blood 1.61 mg/dL (0.40-1.00); Glomerular Filtration Rate 37 (60-); Glucose, Blood 108 mg/dL (70-99); Magnesium, Blood 2.4 mg/dL (1.6-2.4); Phosphorus, Blood 4.7 mg/dL (2.5-4.9); Potassium, Blood 4.5 mmol/L (3.5-5.5); Sodium, Blood 131 mmol/L (136-145)
[2023-07-27] MEDS ORDERED: NS 1,000 ML IV SCH (06:30)
[2023-07-27 07:35] VITALS: BP 121/72
[2023-07-27] MEDS ORDERED: Sodium Chloride 1 GM TAB PO SCH (09:00)
[2023-07-27 15:46] VITALS: BP 109/59
--- NOTE | 2023-07-27 17:16 | NUR ---
PT IS A/OX4, PLEASANT AND COOPERATIVE. THE PT IS UP WITH CELLING LIFT. PT WAS LIFTED INTO THE RECLINING CHAIR AT LUNCH TIME AND WAS IN THE CHAIR FOR APRX. 2 HOURS. THE PT APPEARS TO BE BREATHING EASILY AT REST WITHOUT OXYGEN. THE PT WAS MEDICATED FOR PAIN X1 SO FAR THIS SHIFT. THE OCCUPATIONAL THERAPIST WORKED WITH THE PT TODAY WHILE SHE WAS IN THE CHAIR. CALL LIGHT IN REACH.
[2023-07-27 20:05] VITALS: BP 118/66
--- NOTE | 2023-07-28 03:14 | NUR ---
SHIFT LAWRENCE, PT CALLING ABOUT EVERY 2HR FOR CAHNGE OF INCONT PADS. PT ABLE TO ROLL HERSELF FROM ONE SIDE OF BED TO OTHER. CALL LIGHT IN REACH.
[2023-07-28 04:49] VITALS: BP 122/63
[2023-07-28 04:57] LABS: Hematocrit 29.4 % (33.0-51.0); Hemoglobin 9.2 g/dL (11.5-16.0)
[2023-07-28 05:25] LABS: Albumin, Blood 2.2 g/dL (3.4-5.0); Anion Gap 3 mmol/L (6-16); Blood Urea Nitrogen 42 mg/dL (8-24); Bun/Creatinine Ratio 33.9 (12.0-20.0); CO2, Blood 26 mmol/L (21-32); Calcium, Blood 9.3 mg/dL (8.5-10.1); Chloride, Blood 106 mmol/L (98-108); Creatinine, Blood 1.24 mg/dL (0.40-1.00); Glomerular Filtration Rate 51 (60-); Glucose, Blood 104 mg/dL (70-99); Magnesium, Blood 2.3 mg/dL (1.6-2.4); Phosphorus, Blood 4.3 mg/dL (2.5-4.9); Potassium, Blood 4.1 mmol/L (3.5-5.5); Sodium, Blood 135 mmol/L (136-145)
[2023-07-28] MEDS ORDERED: NS 1,000 ML IR SCH (06:30)
[2023-07-28 07:26] VITALS: BP 131/67
[2023-07-28 16:53] VITALS: BP 107/60
--- NOTE | 2023-07-28 17:10 | NUR ---
SHIFT SUMMARY PT REFUSED SODIUM TAB SCHEDULED AT 1400. PT STATED THAT THE SODIUM TABS CAUSE HER TO FEEL NAUSEOUS. PT ADMITTED TO NAUSEA AND PAIN THIS SHIFT THAT WAS MEDICATED PER THE EMAR. NEW POWERGLIDE WAS PLACED IN THE ANA THIS SHIFT W/ NS INFUSING @ 50 MLS/HR. PT UP IN THE CHAIR X1 THIS SHIFT AND DID NOT TOLERATE IT WELL. NO OTHER ACUTE CHANGES THIS SHIFT. CALL LIGHT WITHIN REACH AND PT ABLE TO MAKE NEEDS KNOWN.
[2023-07-28 19:44] VITALS: BP 107/68
--- NOTE | 2023-07-29 04:14 | NUR ---
SHIFT SUMMERY, PT RESTING IN BED, PT SEEMED TO BE SLEEPING WELL TONIGHT. CALL LIGHT IN REACH.
[2023-07-29 05:01] VITALS: BP 121/64
[2023-07-29 05:39] LABS: Hematocrit 31.7 % (33.0-51.0); Hemoglobin 9.7 g/dL (11.5-16.0)
[2023-07-29 05:55] LABS: Albumin, Blood 2.5 g/dL (3.4-5.0); Anion Gap 3 mmol/L (6-16); Blood Urea Nitrogen 46 mg/dL (8-24); Bun/Creatinine Ratio 26.7 (12.0-20.0); CO2, Blood 26 mmol/L (21-32); Calcium, Blood 9.7 mg/dL (8.5-10.1); Chloride, Blood 106 mmol/L (98-108); Creatinine, Blood 1.72 mg/dL (0.40-1.00); Glomerular Filtration Rate 34 (60-); Glucose, Blood 112 mg/dL (70-99); Magnesium, Blood 2.2 mg/dL (1.6-2.4); Phosphorus, Blood 4.9 mg/dL (2.5-4.9); Potassium, Blood 4.5 mmol/L (3.5-5.5); Sodium, Blood 135 mmol/L (136-145)
[2023-07-29] MEDS ORDERED: NS 1,000 ML IR SCH (06:40)
[2023-07-29] MEDS ORDERED: NS 1,000 ML IV SCH (08:05)
[2023-07-29 08:07] VITALS: BP 122/62
[2023-07-29 16:03] VITALS: BP 111/63
--- NOTE | 2023-07-29 17:33 | NUR ---
SHIFT SUMMARY PT C/O NAUSEA W/ EMESIS X1 THAT WAS MEDICATED PER THE EMAR. PT UP IN CHAIR X1 AND TOLERATED IT WELL. NO OTHER ACUTE CHANGES. CALL LIGHT WITHIN REACH AND PT ABLE TO MAKE NEEDS KNOWN. PLAN FOR DISCHARGE TO SNF NEXT WEEK UPON INSURANCE APPROVAL, SEE CARE COORDINATION NOTES.
[2023-07-29 20:22] VITALS: BP 106/62
[2023-07-30 02:41] VITALS: BP 114/68
[2023-07-30 04:52] LABS: Hematocrit 28.8 % (33.0-51.0)
[2023-07-30 05:12] LABS: Albumin, Blood 2.3 g/dL (3.4-5.0); Anion Gap 3 mmol/L (6-16); Blood Urea Nitrogen 50 mg/dL (8-24); CO2, Blood 24 mmol/L (21-32); Chloride, Blood 106 mmol/L (98-108); Creatinine, Blood 1.92 mg/dL (0.40-1.00); Glomerular Filtration Rate 30 (60-); Glucose, Blood 115 mg/dL (70-99); Magnesium, Blood 2.1 mg/dL (1.6-2.4); Phosphorus, Blood 4.6 mg/dL (2.5-4.9); Potassium, Blood 4.3 mmol/L (3.5-5.5); Sodium, Blood 133 mmol/L (136-145)
--- NOTE | 2023-07-30 05:30 | NUR ---
SHIFT SUMMERY, PT RESTING ON AND OFF DURING THE NIGHT. PT HAD VOMITED THIS AM AND WAS GIVEN ZOFRAN. LATER THSI AM PT CO PAIN AND GIVEN ORAL PAIN MED AND ALSO SOME CRACKERS TO PREVENT UPSET STOMACH. PT AT THSI TIME SLEEPING WELL AND APPEARS TO BE VERY COMFORTABLE. CALL LIGHT IN REACH.
[2023-07-30 07:59] VITALS: BP 123/67
[2023-07-30] MEDS ORDERED: NS 1,000 ML IV SCH (08:40)
[2023-07-30] MEDS ORDERED: HYDROcodone 5-APAP 325 TAB PO PRN (15:05)
[2023-07-30 15:26] VITALS: BP 133/65
--- NOTE | 2023-07-30 17:51 | NUR ---
SHIFT SUMMARY PT RESTING QUIETLY AT START OF SHIFT. PT DIFFICULT TO WAKE BUT LATER WOKE APPROPRIATELY. PT IS MORBIDLY OBESE ON BARIATRIC BED. INCONTINENT OF BOWEL AND BLADDER. 3 SM WOUNDS ON COCCYX, BUTTOCKS AREA. NEW DRSG'S PLACED. PT HAS MULTIPLE EXCORIATIONS IN SKIN FOLDS, D/T OBESITY. PT NONCOMPLIANT WITH BOWEL CARE AND SODIUM TABS. PT MEDICALLY STABLE, WAITING PLACEMENT. CALL LT IN REACH.
[2023-07-30 20:15] VITALS: BP 107/56
[2023-07-30] MEDS ORDERED: Baclofen 10 MG Tab PO SCH (21:00)
[2023-07-31 02:46] VITALS: BP 129/69
[2023-07-31 04:51] LABS: BASOPHILS ABSOLUTE AUTO 0.03 K/mm3 (0.00-0.23); BASOPHILS PERCENT AUTO 1 % (0-2); EOSINOPHILS ABSOLUTE AUTO 0.17 K/mm3 (0.00-0.68); EOSINOPHILS PERCENT AUTO 3 % (0-6); Hematocrit 30.3 % (33.0-51.0); Hemoglobin 9.3 g/dL (11.5-16.0); IMMATURE GRAN ABSOLUTE AUTO 0.01 K/mm3 (0.00-0.10); IMMATURE GRAN PERCENT AUTO 0 % (0-1); LYMPHOCYTES ABSOLUTE AUTO 1.42 K/mm3 (0.84-5.20); LYMPHOCYTES PERCENT AUTO 24 % (21-46); MONOCYTES ABSOLUTE AUTO 0.52 K/mm3 (0.16-1.47); MONOCYTES PERCENT AUTO 9 % (4-13); Mean Corpuscular HGB 28.9 pg (26.0-34.0); Mean Corpuscular HGB Conc 30.7 g/dL (31.5-36.5); Mean Corpuscular Volume 94 fL (80-100); Mean Platelet Volume 11.2 fL (9.1-12.4); NEUTROPHILS ABSOLUTE AUTO 3.78 K/mm3 (1.96-9.15); NEUTROPHILS PERCENT AUTO 64 % (41-73); Platelet Count 190 K/mm3 (150-400); RDW Coefficient Variation 13.6 % (11.7-14.2); RDW Standard Deviation 47.4 fL (35.1-46.3); Red Blood Cell Count 3.22 M/mm3 (3.80-5.20); White Blood Cell Count 5.93 K/mm3 (4.00-11.30)
[2023-07-31 05:12] LABS: Albumin, Blood 2.4 g/dL (3.4-5.0); Albumin/Globulin Ratio 0.5 (0.8-1.8); Bilirubin, Total 0.5 mg/dL (0.1-1.0); Bun/Creatinine Ratio 28.8 (12.0-20.0); Calcium, Blood 9.4 mg/dL (8.5-10.1); Creatinine, Blood 1.32 mg/dL (0.40-1.00); Globulin, Blood 4.5 g/dL (2.2-4.0); Magnesium, Blood 2.2 mg/dL (1.6-2.4); Phosphorus, Blood 3.7 mg/dL (2.5-4.9); Potassium, Blood 4.3 mmol/L (3.5-5.5); Total Protein, Blood 6.9 g/dL (6.4-8.2)
[2023-07-31 07:27] VITALS: BP 135/97
[2023-07-31] MEDS ORDERED: NS 1,000 ML IV SCH (08:15)
--- NOTE | 2023-07-31 18:37 | NUR ---
SHIFT SUMMARY: PT A&O X4. PT HAS BEEN VERY IRRITABLE/FRUSTRATED THIS SHIFT SHE BELIEVES STAFF IS NOT LISTENING TO CONCERNS. PLAN FOR PT TO D/C TO [facility] IN [place]. BARIATRIC WHEELCHAIR TO BE DELIVERED TO FACILITY. PT REFUSED AFTERNOON DOSE OF SODIUM WELL AM PARISA. C/O PAIN IN L. HIP. MEDICATED PER EMAR. PT UP TO CHAIR FOR DINNER. MEPILEX(S) CHANGED AND NYSTATIN CREAM APPLIED. CALL LIGHT IN REACH. BED IN LOWEST POSITION. WILL REPORT TO ONCIMING RN.
[2023-07-31 19:49] VITALS: BP 133/77
[2023-08-01 04:26] VITALS: BP 125/69
[2023-08-01 05:43] LABS: BASOPHILS ABSOLUTE AUTO 0.02 K/mm3 (0.00-0.23); BASOPHILS PERCENT AUTO 0 % (0-2); EOSINOPHILS ABSOLUTE AUTO 0.16 K/mm3 (0.00-0.68); EOSINOPHILS PERCENT AUTO 3 % (0-6); Hematocrit 29.4 % (33.0-51.0); Hemoglobin 9.1 g/dL (11.5-16.0); IMMATURE GRAN ABSOLUTE AUTO 0.02 K/mm3 (0.00-0.10); IMMATURE GRAN PERCENT AUTO 0 % (0-1); LYMPHOCYTES ABSOLUTE AUTO 1.51 K/mm3 (0.84-5.20); LYMPHOCYTES PERCENT AUTO 26 % (21-46); MONOCYTES ABSOLUTE AUTO 0.53 K/mm3 (0.16-1.47); MONOCYTES PERCENT AUTO 9 % (4-13); Mean Corpuscular Volume 94 fL (80-100); Mean Platelet Volume 11.3 fL (9.1-12.4); NEUTROPHILS ABSOLUTE AUTO 3.51 K/mm3 (1.96-9.15); NEUTROPHILS PERCENT AUTO 61 % (41-73); Platelet Count 191 K/mm3 (150-400); RDW Coefficient Variation 13.5 % (11.7-14.2); RDW Standard Deviation 46.2 fL (35.1-46.3); Red Blood Cell Count 3.14 M/mm3 (3.80-5.20); White Blood Cell Count 5.75 K/mm3 (4.00-11.30)
[2023-08-01 06:10] LABS: Albumin, Blood 2.2 g/dL (3.4-5.0); Albumin/Globulin Ratio 0.5 (0.8-1.8); Bilirubin, Total 0.5 mg/dL (0.1-1.0); Bun/Creatinine Ratio 26.2 (12.0-20.0); Calcium, Blood 9.2 mg/dL (8.5-10.1); Creatinine, Blood 0.99 mg/dL (0.40-1.00); Globulin, Blood 4.4 g/dL (2.2-4.0); Magnesium, Blood 1.9 mg/dL (1.6-2.4); Phosphorus, Blood 3.6 mg/dL (2.5-4.9); Potassium, Blood 4.6 mmol/L (3.5-5.5); Total Protein, Blood 6.6 g/dL (6.4-8.2)
[2023-08-01] MEDS ORDERED: NS 1,000 ML IV SCH (06:55)
[2023-08-01 08:37] VITALS: BP 162/92
--- NOTE | 2023-08-01 16:34 | NUR ---
SHIFT SUMMARY A&OX4, COOPERATIVE. COMPLAINED OF PAIN TO BILAT HIPS AND SHOULDERS T/O SHIFT. DENIED CP/PRESSURE, HEADACHE, DIZZINESS, OR SOB. SAT UP IN BARIATRIC WHEELCHAIR CHAIR FOR APPROX 2HRS. RECEIVED A BED BATH, SKIN/WOUND CARE TO MARYLU ARE AND FOLDS. WAITING FOR INSURANCE AUTH FOR DISCHARGE TO [facility] IN [place]. NO ACUTE EVENTS THIS SHIFT. APPETITE AND HYDRATION FAIR. BED IN THE LOWEST POSITION. CALL LIGHT WITHIN REACH.
[2023-08-01 19:53] VITALS: BP 154/86
[2023-08-01] MEDS ORDERED: Ascorbic Acid 500 MG Tab PO SCH (21:00)
[2023-08-02 03:16] VITALS: BP 141/71
--- NOTE | 2023-08-02 04:46 | NUR ---
PT RESTING QUIETLY IN BED. INCONTINENT. A & O X 4. NO PUREWIC OR ATTENDS. WOUNDS TO GROIN AND PANNUS DOCUMENTED IN SKIN ASSESSMENT. POWERGLIDE TO ANA, BUT DOES NOT DRAW BLOOD. SWOLLEN PUBIS NOTED. PLAN IS FOR PT TO GO TO [facility] IN [place]. WILL CONTINUE TO PROVIDE CARE AND MONITOR FOR CHANGES T/O SHIFT.
[2023-08-02 04:56] LABS: Hematocrit 28.9 % (33.0-51.0); Hemoglobin 9.1 g/dL (11.5-16.0)
[2023-08-02 05:23] LABS: Albumin, Blood 2.4 g/dL (3.4-5.0); Anion Gap 4 mmol/L (6-16); Blood Urea Nitrogen 20 mg/dL (8-24); Bun/Creatinine Ratio 20.9 (12.0-20.0); CO2, Blood 26 mmol/L (21-32); Calcium, Blood 9.5 mg/dL (8.5-10.1); Chloride, Blood 106 mmol/L (98-108); Creatinine, Blood 0.96 mg/dL (0.40-1.00); Glomerular Filtration Rate 69 (60-); Glucose, Blood 109 mg/dL (70-99); Magnesium, Blood 1.8 mg/dL (1.6-2.4); Phosphorus, Blood 3.8 mg/dL (2.5-4.9); Potassium, Blood 4.2 mmol/L (3.5-5.5); Sodium, Blood 136 mmol/L (136-145)
[2023-08-02 08:07] VITALS: BP 152/87
[2023-08-02] MEDS ORDERED: Sodium Chloride 1 GM TAB PO SCH (09:00)
[2023-08-02] MEDS ORDERED: Zinc Sulfate 220 MG Cap (Provides 50MG) PO SCH (09:00)
[2023-08-02] MEDS ORDERED: Glycerin Adult Supp 1 EA PR ONE (10:00)
[2023-08-02 14:45] VITALS: BP 148/81
--- NOTE | 2023-08-02 17:34 | NUR ---
SHIFT SUMMARY A&OX4, COOPERATIVE WITH CARE. NO ACUTE EVENTS THIS SHIFT. DENIES CP/PRESSURE, HEADACHE, DIZZINESS, OR SOB. COMPLAINED OF L HIP PAIN ALL SHIFT. MEDICATED PER EMAR. SHE HAD 2 BOWEL MOVEMENTS AND MULTIPLE VOIDS. SKIN CARE COMPLETED AND MEPILEXES CHANGED. APPETITE FAIR. PT VERBALIZED SHE FEELS FULL/BLOATED AND WAS NOT HUNGRY FOR LUNCH OR DINNER. WATER INTAKE WAS GOOD. PATIENT IS CURRENTLY LAYING IN BED. CALL LIGHT WITHIN REACH.
[2023-08-02 19:05] VITALS: BP 130/78
[2023-08-03 02:34] VITALS: BP 131/77
[2023-08-03 05:26] LABS: Hematocrit 29.1 % (33.0-51.0); Hemoglobin 9.2 g/dL (11.5-16.0)
[2023-08-03 06:33] LABS: Albumin, Blood 2.3 g/dL (3.4-5.0); Anion Gap 2 mmol/L (6-16); Blood Urea Nitrogen 15 mg/dL (8-24); Bun/Creatinine Ratio 15.8 (12.0-20.0); CO2, Blood 28 mmol/L (21-32); Calcium, Blood 9.1 mg/dL (8.5-10.1); Chloride, Blood 104 mmol/L (98-108); Creatinine, Blood 0.95 mg/dL (0.40-1.00); Glomerular Filtration Rate 70 (60-); Glucose, Blood 115 mg/dL (70-99); Magnesium, Blood 1.5 mg/dL (1.6-2.4); Phosphorus, Blood 3.7 mg/dL (2.5-4.9); Sodium, Blood 134 mmol/L (136-145)
--- NOTE | 2023-08-03 06:43 | NUR ---
SHIFT SUMMARY PT HAS BEEN PLEASANT AND COOPERATIVE WITH CARE. PT HAS BEEN RESTING QUIETLY IN BED WITHOUT ANY COMPLAINTS. WILL CONTINUE TO MONITOR AND PROVIDE CARE T/O SHIFT.
--- NOTE | 2023-08-03 07:30 | NUR ---
ASSUMED CARE: PT RESTING IN BED, AWAKE AND TALKING TO STAFF DURING BEDSIDE REPORT. DENIES NEEDS OR CONCERNS AT THIS TIME. CALL LIGHT IN REACH
[2023-08-03 07:36] VITALS: BP 147/80
[2023-08-03] MEDS ORDERED: Magnesium Sulf 2 GM/Water 50ML 50 ML IV ONE (09:45)
[2023-08-03 10:00] LABS: SARS-Cov-2 (COVID-19) PCR, MMC NEGATIVE (NEGATIVE)
[2023-08-03] MEDS ORDERED: Mag Sulfate 1 GM/D5% 100ML 100 ML IV ONE (10:05)
[2023-08-03] MEDS ORDERED: BACL10 PO (11:31)
[2023-08-03] MEDS ORDERED: Acetaminophen650 M1 PO (11:33)
[2023-08-03] MEDS ORDERED: ASCO500 PO (11:34)
[2023-08-03] MEDS ORDERED: BISA10S PR (11:35)
[2023-08-03] MEDS ORDERED: BISA5EC PO (11:35)
[2023-08-03] MEDS ORDERED: DOCU100 PO (11:36)
[2023-08-03] MEDS ORDERED: FAMO20 PO (11:36)
[2023-08-03] MEDS ORDERED: HYDR1TAB94 PO (11:37)
[2023-08-03] MEDS ORDERED: MICONAZOLE NITR85 GM TOP (11:39)
[2023-08-03] MEDS ORDERED: NYSTATIN15 GM TOP (11:40)
[2023-08-03] MEDS ORDERED: SENN187 PO (11:42)
[2023-08-03] MEDS ORDERED: METAMUCIL POWD798 GM PO (11:42)
[2023-08-03] MEDS ORDERED: VISBIOME 112.51 EACH PO (11:43)
[2023-08-03] MEDS ORDERED: ZINC220 PO (11:43)
[2023-08-03] MEDS ORDERED: SODCHL1 PO (11:43)
[2023-08-03] MEDS ORDERED: ONDA4ODT MM (11:45)
[2023-08-03] MEDS ORDERED: HYDROCODONE-AC1 EA10 PO (11:59)
[2023-08-03] MEDS ORDERED: Lisinopril 5 MG Tab PO SCH (13:00)
[2023-08-03 13:31] VITALS: BP 130/83
[2023-08-03 15:27] VITALS: BP 134/88
--- NOTE | 2023-08-03 18:33 | NUR ---
SHIFT SUMMARY: PLAN FOR PT TO DISCHARGE TOMORROW TO FACILITY. WORKED WITH OT TODAY AND GOT INTO CHAIR. MEDICATED FOR PAIN X1. LARGE BM THIS SHIFT. MAKES NEEDS KNOWN. NO ACUTE NEEDS AT THIS TIME.
[2023-08-03 19:26] VITALS: BP 119/73
[2023-08-04 03:42] VITALS: BP 122/70
--- NOTE | 2023-08-04 04:18 | NUR ---
SHIFT SUMMARY: "MIGUEL A" IS A&OX4. VSS, NO ACUTE EVENTS OVERNIGHT. SHE REPORTS ADEQUATE PAIN CONTROL WITH MEDICATIONS PER MAR. PT IS INCONTINENT OF BLADDER AND BOWEL. LIFT UP TO THE WHEELCHAIR AT BEDSIDE. PT IS TOLERATING PO INTAKE WELL AND IS ABLE TO TURN AND REPOSITION HERSELF WITH A ONE-PERSON ASSIST. PLAN IS FOR PT TO DISCHARGE TODAY. POWERGLIDE TO ANA PATENT. SHE IS LYING IN BED WITH THE CALL LIGHT IN REACH. WILL GIVE REPORT TO DAY SHIFT RN.
[2023-08-04 05:24] LABS: Hematocrit 28.9 % (33.0-51.0); Hemoglobin 9.1 g/dL (11.5-16.0)
[2023-08-04 06:04] LABS: Albumin, Blood 2.4 g/dL (3.4-5.0); Anion Gap 1 mmol/L (6-16); Blood Urea Nitrogen 16 mg/dL (8-24); Bun/Creatinine Ratio 15.4 (12.0-20.0); CO2, Blood 28 mmol/L (21-32); Calcium, Blood 9.3 mg/dL (8.5-10.1); Chloride, Blood 104 mmol/L (98-108); Creatinine, Blood 1.04 mg/dL (0.40-1.00); Glomerular Filtration Rate 63 (60-); Glucose, Blood 114 mg/dL (70-99); Magnesium, Blood 1.9 mg/dL (1.6-2.4); Phosphorus, Blood 4.4 mg/dL (2.5-4.9); Potassium, Blood 4.1 mmol/L (3.5-5.5); Sodium, Blood 133 mmol/L (136-145)
[2023-08-04 07:29] VITALS: BP 122/70
[2023-08-04] MEDS ORDERED: Sodium Chloride 1 GM TAB PO SCH (09:00)
--- NOTE | 2023-08-04 12:10 | NUR ---
[facility]CHARGE [facility] HERE TO TRANSPORT PT TO [place]. PT AGREEABLE. CEILING LIFT USED TO MOVE PT TO [facility]. ÁNGELELENA JACKSON SENT WITH HER. PT PERSRIPTION THAT BELONGS TO HER DAD IS STILL HERRE. BROTHER IS COMING TO GET IT. POWER GLIDE REMOVED WITH CANNULA INTACT. CARE ONGOING.
--- NOTE | 2023-08-04 12:27 | NUR ---
REPORT REPORT CALLED TO [facility] [phone]. CARE ONGOING.
--- NOTE | 2023-08-04 12:55 | NUR ---
oxycodone pt had in her locked drawer. A pill bottle for "Yared Casarez" pt father. It has 1 Oxycodone tablet. asked pt aboutit she stated to throw it away. Called pharmacy, talked with Carolyn she stated to have pt call family to vcome get it. We are unable to destroy because it doesn't belong to the pt. Re talked with pt. requested that she call her Dad. SHe stated that her brother will pick it up. Brother had not arrived prior to pt discharge. Called pharmacyCarolyn again. SHe is talking to her [employer] supervisor. Care ongoing.
== END 2023-08-04 11:22 | DRG 565 ==
LOC: ER 17:34 → MEDS 22:02 → ENPENDDIS 08-03 10:06 → MEDS 08-04 11:22
PROVIDERS: Family Medicine; Hospitalist; Internal Medicine; Internal Medicine Nephrology; Student in an Organized Health Care Education/Training Program; ADMIT Internal Medicine
DX: T79.6XXA Traumatic ischemia of muscle, initial encounter (principal); E87.1 Hypo-osmolality and hyponatremia; N17.9 Acute kidney failure, unspecified; N39.0 Urinary tract infection, site not specified; E87.20 Acidosis, unspecified; Z51.5 Encounter for palliative care; Z66 Do not resuscitate; G89.29 Other chronic pain; K59.00 Constipation, unspecified; K21.9 Gastro-esophageal reflux disease without esophagitis; M25.552 Pain in left hip; I12.9 Hypertensive chronic kidney disease with stage 1 through stage 4 chronic kidney disease, or unspecified chronic kidney disease; E83.42 Hypomagnesemia; L30.4 Erythema intertrigo; E66.01 Morbid (severe) obesity due to excess calories; M62.838 Other muscle spasm; R63.4 Abnormal weight loss; B96.20 Unspecified Escherichia coli [E. coli] as the cause of diseases classified elsewhere; E86.9 Volume depletion, unspecified; D63.1 Anemia in chronic kidney disease; M79.3 Panniculitis, unspecified; M79.604 Pain in right leg; M79.605 Pain in left leg; M54.30 Sciatica, unspecified side; E87.70 Fluid overload, unspecified; E88.09 Other disorders of plasma-protein metabolism, not elsewhere classified; N18.31 Chronic kidney disease, stage 3a; E83.41 Hypermagnesemia; R32 Unspecified urinary incontinence; W18.30XA Fall on same level, unspecified, initial encounter; Z88.0 Allergy status to penicillin; Z88.8 Allergy status to other drugs, medicaments and biological substances; Z74.01 Bed confinement status; Z91.013 Allergy to seafood; Z91.010 Allergy to peanuts; Z91.018 Allergy to other foods; Z79.899 Other long term (current) drug therapy; Z79.82 Long term (current) use of aspirin; Z98.890 Other specified postprocedural states; Z68.24 Body mass index [BMI] 24.0-24.9, adult; Z11.52 Encounter for screening for COVID-19
CPT/HCPCS: 36415; 51702; 71046; 73502; 76770; 80048; 80053; 80069; 80202; 80400; 81001; 82436; 82533; 82550; 82565; 83735; 84100; 84156; 84166; 84295; 84300; 84443; 84484; 84550; 85014; 85018; 85025; 86334; 86335; 87077; 87086; 87186; 87205; 93005; 93010; 93970; 93975; 96365; 96375; 97110; 97110-CQ; 97112; 97162; 97166; 97530; 97530-CQ; 97535; 99285-25; A9270; C1751; J0696; J0834; J0881; J1644; J1885; J2405; J3010; J3370; J3475; J7030; J7050; U0002